=== PATIENT | male | born 1980 | race Caucasian/White ===

== ENCOUNTER 2016-06-25 14:15 | Inpatient (IN) | payer BC, OTHER ==
[2016-06-25] MEDS ORDERED: ACETAMINOPHEN 325 MG TAB PO PRN (15:35)
[2016-06-25] MEDS ORDERED: ONDANSETRON DISINTEGRATING 4 MG TAB PO PRN (15:35)
--- NOTE | 2016-06-25 16:44 | GHP ---
[f rep st] HISTORY AND PHYSICAL DATE OF ADMISSION: 06/25/2016 CHIEF COMPLAINT: Presenting for chemotherapy. HISTORY OF PRESENT ILLNESS: This is a 36-year-old male with a recent diagnosis of AML, presenting fo r his second round of chemotherapy. Last round, patient was admitted on 04/27/2016 and was discharge d on 05/23/2016. The patient reports no recent fevers or chills. No recent vision changes, headache . Has had complete resolution of his symptoms of esophagitis during his last hospital stay, for whic h he received a post-disposition 2-week course of empiric antifungals. Patient reports normal appeti te. No nausea. No vomiting. No abdominal discomfort, dysuria, hematuria, swelling, shortness of br eath, or chest pain. PAST MEDICAL HISTORY: 1. Acute myelogenous leukemia, status post induction chemotherapy. 2. Previous odynophagia with possible candidal esophagitis. SOCIAL HISTORY: Negative for tobacco, alcohol, or illicit drugs. FAMILY HISTORY: Positive for coronary artery disease, lung cancer, and a brother who of complic ations of alcoholism. ADVANCED DIRECTIVES: Patient is full cor, full tube. REVIEW OF SYSTEMS: A 10-point review of systems is negative with the exception of that reported in t he HPI. PHYSICAL EXAMINATION: VITAL SIGNS: Blood pressure 116/81, heart rate 106, respiratory rate 17, 95% on room air, 36.7. GENERAL: This is a healthy-appearing young male, in no acute distress. HEENT: Notable for moist mucous membranes. Eye exam is negative for any icterus. CARDIAC: Patient is regu lar rate and rhythm. No murmurs, gallops, or rubs. PULMONARY: Good respiratory effort. Clear to a uscultation bilaterally. GASTROINTESTINAL: Positive bowel sounds. Abdomen is soft and nontender t o palpation in all 4 quadrants. MUSCULOSKELETAL: Negative for any lower extremity edema. SKIN: Ne gative for any rashes. NEUROLOGIC: Patient is alert and oriented x3. PSYCHIATRIC: He is pleasant and cooperative on interview and examination. DATA: Last white count is 7.5, that was on 05/29/2016 and platelets were 790 at that time. Chest x- ray performed during his previous hospitalization, which I personally reviewed and interpreted, showe d mild hypoventilation and a small right pleural effusion. ASSESSMENT AND PLAN: This is a 36-year-old male, presenting for second round of chemotherapy for acu te myelogenous leukemia. 1. Acute myelogenous leukemia: Chemo protocols have been written by Oncology. Patient will initiat e during this hospital stay. Will discuss empiric treatment of esophagitis with Oncology tomorrow. The patient is taking normal p.o. Will follow hydration protocols per chemotherapy. 2. Suspected candidal esophagitis: Again, will discuss with Oncology whether we should empirically t reat this patient before the salty of his chemotherapy. 3. Prophylaxis with Lovenox. 4. Diet: Regular. DISPOSITION: I expect greater than 2-midnights as patient is presenting for round 2 of AML chemother apy. I have discussed the case with the Onc pharmacist. He will write orders for initiation of chem o. /[id number]/MODL
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
[2016-06-25] MEDS: DEXAMETHASONE 0.1% 5 ML OPHT.BTL EACHEYE SCH ×2 (17:36→20:49)
[2016-06-25] MEDS: DEXAMETHASONE SOD PHOSPHATE IV SCH (20:33)
[2016-06-25] MEDS: NS IV SCH ×2 (20:33→20:57)
[2016-06-25] MEDS: ONDANSETRON HCL IV SCH (20:33)
[2016-06-25] MEDS: ONDANSETRON 4 MG/2 ML VIAL IVP PRN (20:34)
[2016-06-25] MEDS: CYTARABINE IV SCH (20:57)
[2016-06-26] MEDS: DEXAMETHASONE 0.1% 5 ML OPHT.BTL EACHEYE SCH ×5 (05:59→20:34)
[2016-06-26 06:12] LABS: % IMMATURE GRANULYOCYTES 0.6 % (0.0-1.1); ABSOLUTE IMMATURE GRANULOCYTES 0.06 10^3/uL (0.00-0.10); ADD DIFF? NO; ADD MORPH? NO; ADD SCAN? NO; ATYPICAL LYMPHOCYTE FLAG 0 (0-99); FRAGMENT RBC FLAG 0 (0-99); HEMATOCRIT 38.1 % (40.0-51.0); HEMOGLOBIN 12.9 g/dL (13.7-17.5); LEFT SHIFT FLG 10 (0-99); LIPEMIA HEMOLYSIS FLAG 90 (0-99); MEAN CELL HEMOGLOBIN 31.5 pg (27.9-34.1); MEAN CELL HEMOGLOBIN CONCENTR. 33.9 g/dL (32.4-36.7); MEAN CELL VOLUME 93.2 fL (81.5-99.8); MEAN PLATELET VOLUME 9.6 fL (8.7-11.7); PLATELET CLUMPS FLAG 0 (0-99); PLATELET COUNT 210 10^3/uL (150-400); RED BLOOD CELL COUNT 4.09 10^6/uL (4.40-6.38); RED CELL DISTRIBUTION WIDTH 15.3 % (11.5-15.2)
[2016-06-26 06:27] LABS: ALANINE AMINOTRANSFERASE 40 IU/L (21-72); ALBUMIN 3.7 g/dL (3.5-5.0); ALKALINE PHOSPHATASE 92 IU/L (38-126); ANION GAP 11 mEq/L (8-16); ASPARTATE AMINOTRANSFERASE 25 IU/L (17-59); BILIRUBIN,TOTAL 0.4 mg/dL (0.1-1.4); CALCIUM 9.2 mg/dL (8.5-10.4); CARBON DIOXIDE 24 mEq/l (22-31); CHLORIDE 103 mEq/L (97-110); CREATININE 0.7 mg/dL (0.7-1.3); GLOMERULAR FILTRATION RATE > 60; GLUCOSE 150 mg/dL (70-100); SODIUM 138 mEq/L (134-144); TOTAL PROTEIN 6.7 g/dL (6.3-8.2)
--- NOTE | 2016-06-26 06:36 | SOAPPROG ---
SOSORAIDA Progress Note Assessment/Plan: Assessment: 1.) AML in Consolidation # 1- with High dose Cytarabine 3,000 mg/M2 IV Q 12 hours on Days 1, 3, 5 Comment: Day # 1 first dose didn't start until 9 PM. Second dose of " day 1" will be 9 AM today. Day # 3 starts 06/27- Saturday- it is okay to move administration time to 2 PM on 06/27. Toxicity to monitor for : Nausea, diarrhea, early mucositis, cerebellar toxicity, myelosuppression, and skin reaction. Plan: 1.) Second dose of Cytarabine, "Day 1" at 9 AM today. Observe for toxicity. 2.) Day 3 starts 06/27/16. 06/26/16 06:32 Subjective: Tolerated first dose of high dose Sadie-C without toxicity. No new sx. this AM. Objective: VSS, Afebrile, as noted here Pulse is strong, and regular this AM. PICC line site is NT at exit site. No peripheral edema. Labs as noted here: Hgb 12.9, WBC 10.13, PLT 210 Chemistry panel - Glucose 150. BUN/CR 12/0.7 Vital Signs Temp Pulse Resp BP Pulse Ox 36.3 C 75 16 123/66 H 92 06/26/16 05:00 06/26/16 05:00 06/26/16 05:00 06/26/16 05:00 06/26/16 05:00 Laboratory Results 06/26/16 05:55 06/26/16 05:55 06/25/16 06/26/16 06/27/16 05:59 05:59 05:59 Intake Total 1072 Output Total 600 Balance 472 ICD10 Worksheet Patient Problems: Problems Problem Status Diagnosed AML (acute myelogenous leukemia) Acute Pancytopenia due to antineoplastic chemotherapy Acute
[2016-06-26] MEDS: NS IV SCH ×2 (09:33→10:37)
[2016-06-26] MEDS: ONDANSETRON HCL IV SCH (09:33)
[2016-06-26] MEDS: DEXAMETHASONE SOD PHOSPHATE IV SCH (09:33)
[2016-06-26] MEDS: ENOXAPARIN 40 MG/0.4 ML SYR SC SCH (09:34)
[2016-06-26] MEDS: CYTARABINE IV SCH (10:37)
--- NOTE | 2016-06-26 10:56 | HOSPPROG ---
Hospitalist Progress Note Assessment/Plan: 36-year-old with AML who comes in for consolidation therapy following his induction. Is no complaints # AML: Starting consolidation therapy yesterday defer to Dr. Briones patient otherwise without complaints # history of the odynophagia and Lesley esophagitis with his previous induction. Subjective: Patient new to me, chart reviewed currently Brody has no new complaints Objective: Vital Signs Temp Pulse Resp BP Pulse Ox 36.6 C 67 18 103/63 91 L 06/26/16 08:01 06/26/16 08:01 06/26/16 08:01 06/26/16 08:01 06/26/16 08:01 Laboratory Results 06/26/16 05:55 06/26/16 05:55 06/25/16 06/26/16 06/27/16 05:59 05:59 05:59 Intake Total 1072 Output Total 600 Balance 472 - Physical Exam Constitutional: no apparent distress, not in pain Eyes: PERRL, EOMI Ears, Nose, Mouth, Throat: moist mucous membranes Skin: normal color Neurologic: AAOx3 Psychiatric: interacting appropriately ICD10 Worksheet Patient Problems: Problems Problem Status Diagnosed AML (acute myelogenous leukemia) Acute Pancytopenia due to antineoplastic chemotherapy Acute
[2016-06-27] MEDS: DEXAMETHASONE 0.1% 5 ML OPHT.BTL EACHEYE SCH ×4 (05:33→21:46)
[2016-06-27 05:46] LABS: % IMMATURE GRANULYOCYTES 0.6 % (0.0-1.1); ABSOLUTE IMMATURE GRANULOCYTES 0.09 10^3/uL (0.00-0.10); ADD DIFF? NO; ADD MORPH? NO; ADD SCAN? NO; ATYPICAL LYMPHOCYTE FLAG 0 (0-99); FRAGMENT RBC FLAG 0 (0-99); HEMATOCRIT 36.3 % (40.0-51.0); HEMOGLOBIN 12.2 g/dL (13.7-17.5); LEFT SHIFT FLG 0 (0-99); LIPEMIA HEMOLYSIS FLAG 80 (0-99); MEAN CELL HEMOGLOBIN 31.4 pg (27.9-34.1); MEAN CELL HEMOGLOBIN CONCENTR. 33.6 g/dL (32.4-36.7); MEAN CELL VOLUME 93.3 fL (81.5-99.8); MEAN PLATELET VOLUME 9.6 fL (8.7-11.7); PLATELET CLUMPS FLAG 0 (0-99); PLATELET COUNT 199 10^3/uL (150-400); RED BLOOD CELL COUNT 3.89 10^6/uL (4.40-6.38); RED CELL DISTRIBUTION WIDTH 15.6 % (11.5-15.2)
[2016-06-27 06:11] LABS: ANION GAP 11 mEq/L (8-16); CALCIUM 8.8 mg/dL (8.5-10.4); CARBON DIOXIDE 26 mEq/l (22-31); CHLORIDE 103 mEq/L (97-110); CREATININE 0.7 mg/dL (0.7-1.3); GLOMERULAR FILTRATION RATE > 60; GLUCOSE 124 mg/dL (70-100); POTASSIUM 4.4 mEq/L (3.5-5.2); SODIUM 140 mEq/L (134-144)
[2016-06-27] MEDS: ENOXAPARIN 40 MG/0.4 ML SYR SC SCH (09:00)
[2016-06-27] MEDS: ONDANSETRON HCL IV SCH ×2 (11:27→23:27)
[2016-06-27] MEDS: DEXAMETHASONE SOD PHOSPHATE IV SCH ×2 (11:27→23:27)
[2016-06-27] MEDS: NS IV SCH ×3 (11:27→23:27)
[2016-06-27] MEDS: CYTARABINE IV SCH (12:05)
--- NOTE | 2016-06-27 12:37 | SOAPPROG ---
SOSORAIDA Progress Note Assessment/Plan: Assessment: 1.) AML in Consolidation # 1- with High dose Cytarabine 3,000 mg/M2 IV Q 12 hours on Days 1, 3, 5 Comment: Day # 1 first dose didn't start until 9 PM. Second dose of " day 1" will be 9 AM today. Day # 3 starts 06/27- Saturday- it is okay to move administration time to 11 AM on 06/27. Toxicity to monitor for : Nausea, diarrhea, early mucositis, cerebellar toxicity, myelosuppression, and skin reaction. Plan: 1.) Second dose of Cytarabine, "Day 1" at 9 AM today. Observe for toxicity. 2.) Day 3 starts 06/27/16. ALIN-C at 11 AM and 11 PM, each over 3 hours with premeds before each dose. 06/27/16 12:36 Subjective: Stable by sx. without toxicity of Tx. thus far. No new sx. Objective: as noted here, VSS, afebrile HEENT- anicteric, no oral lesions Neck- supple Chest- clear CVS- RSR, no extra HS ABD- soft, NT , BS+, no HSM. EXT- no edema, skin intact. Labs- Hgb 12.2, WBC 15.17 Glu 124 Vital Signs Temp Pulse Resp BP Pulse Ox 36.5 C 108 H 16 113/81 H 95 06/27/16 11:08 06/27/16 11:08 06/27/16 11:08 06/27/16 11:08 06/27/16 11:08 Laboratory Results 06/27/16 05:30 06/27/16 05:30 06/26/16 06/27/16 06/28/16 05:59 05:59 05:59 Intake Total 1072 322 Output Total 600 1800 Balance 472 -0982 ICD10 Worksheet Patient Problems: Problems Problem Status Diagnosed AML (acute myelogenous leukemia) Acute Pancytopenia due to antineoplastic chemotherapy Acute
--- NOTE | 2016-06-27 18:49 | HOSPPROG ---
Hospitalist Progress Note Assessment/Plan: Assessment/Plan: 36-year-old with AML presents for consolidation therapy following his induction # AML: Consolidation, D#3 - defer to Dr. Briones - monitor labs at discretion of heme/onc - no physical complaints today - requiring ongoing IVF # History of the odynophagia and Lesley esophagitis with his previous induction, monitor # Leukocytosis: WBC [facility] to 15K 2/2 dex Diet. Regular Prophylaxis. High risk patient, Lovenox 40 Code. Full Disposition. Anticipated discharge is after consolidation therapy, patient requires ongoing inpatient admission for chemotherapy consolidation. Subjective: Patient denies any complaints Objective: Vital Signs Temp Pulse Resp BP Pulse Ox 36.8 C 104 H 16 128/84 H 93 06/27/16 17:25 06/27/16 17:25 06/27/16 17:25 06/27/16 17:25 06/27/16 17:25 Laboratory Results 06/27/16 05:30 06/27/16 05:30 06/26/16 06/27/16 06/28/16 05:59 05:59 05:59 Intake Total 1148 264 4475 Output Total 600 1800 Balance 472 -1721 3425 - Physical Exam Constitutional: no apparent distress, appears nourished, not in pain, No uncomfortable Ears, Nose, Mouth, Throat: moist mucous membranes, hearing normal, ears appear normal, no oral mucosal ulcers Cardiovascular: regular rate and rhythym, no murmur, rub, or gallop Respiratory: no respiratory distress, no rales or rhonchi, clear to auscultation Gastrointestinal: normoactive bowel sounds, soft, non-tender abdomen, no palpable masses Neurologic: AAOx3, sensation intact bilaterally Psychiatric: interacting appropriately, not anxious, not encephalopathic, thought process linear ICD10 Worksheet Patient Problems: Problems Problem Status Diagnosed AML (acute myelogenous leukemia) Acute Pancytopenia due to antineoplastic chemotherapy Acute
[2016-06-28] MEDS: NS IV SCH (00:03)
[2016-06-28] MEDS: CYTARABINE IV SCH (00:03)
[2016-06-28] MEDS: DEXAMETHASONE 0.1% 5 ML OPHT.BTL EACHEYE SCH ×4 (05:30→20:56)
[2016-06-28 05:52] LABS: % IMMATURE GRANULYOCYTES 0.6 % (0.0-1.1); ABSOLUTE IMMATURE GRANULOCYTES 0.07 10^3/uL (0.00-0.10); ADD DIFF? NO; ADD MORPH? NO; ADD SCAN? NO; ATYPICAL LYMPHOCYTE FLAG 0 (0-99); FRAGMENT RBC FLAG 0 (0-99); HEMATOCRIT 35.1 % (40.0-51.0); HEMOGLOBIN 11.7 g/dL (13.7-17.5); LEFT SHIFT FLG 0 (0-99); LIPEMIA HEMOLYSIS FLAG 80 (0-99); MEAN CELL HEMOGLOBIN CONCENTR. 33.3 g/dL (32.4-36.7); MEAN CELL VOLUME 93.1 fL (81.5-99.8); MEAN PLATELET VOLUME 9.6 fL (8.7-11.7); PLATELET CLUMPS FLAG 0 (0-99); PLATELET COUNT 189 10^3/uL (150-400); RED BLOOD CELL COUNT 3.77 10^6/uL (4.40-6.38); RED CELL DISTRIBUTION WIDTH 15.4 % (11.5-15.2)
[2016-06-28 06:09] LABS: ANION GAP 9 mEq/L (8-16); CALCIUM 8.9 mg/dL (8.5-10.4); CARBON DIOXIDE 25 mEq/l (22-31); CHLORIDE 105 mEq/L (97-110); CREATININE 0.6 mg/dL (0.7-1.3); GLOMERULAR FILTRATION RATE > 60; GLUCOSE 136 mg/dL (70-100); POTASSIUM 4.7 mEq/L (3.5-5.2); SODIUM 139 mEq/L (134-144)
--- NOTE | 2016-06-28 06:42 | SOAPPROG ---
SOSORAIDA Progress Note Assessment/Plan: Assessment: 1.) AML in Consolidation # 1- with High dose Cytarabine 3,000 mg/M2 IV Q 12 hours on Days 1, 3, 5 Comment: Day # 1 first dose didn't start until 9 PM. Second dose of " day 1" will be 9 AM today. Day # 3 starts 06/27- Saturday- it is okay to move administration time to 11 AM on 06/27. Toxicity to monitor for : Nausea, diarrhea, early mucositis, cerebellar toxicity, myelosuppression, and skin reaction. Plan: 1.) Pt finished Day 3 Cytarabine at 2 AM today. 2.) Next and last day of chemotherapy is scheduled for 06/29/16, with Cytarabine over 3 hours each, Q 12 hours. First dose for AM. 3.) If patient well, anticipate discharge on 06/30/16. Pt aware of Tx schedule and discharge plans, with outpt. follow up scheduled to start next week. 06/28/16 06:41 Subjective: Stable over past 24 hours, without complaint of Tx toxicity associated with high dose Cytarabine. Objective: As noted here, VSS, afebrile Pulse is SB associated with restful sleep. Labs show Hgb 11.7, PLT remains normal at 189 and WBC at 11.63 Chemistry panel no new issues: Vital Signs Temp Pulse Resp BP Pulse Ox 36.4 C 57 L 16 118/62 94 06/28/16 03:13 06/27/16 23:59 06/28/16 03:13 06/28/16 03:13 06/28/16 03:13 Laboratory Results 06/28/16 05:35 06/28/16 05:35 06/27/16 06/28/16 06/29/16 05:59 05:59 05:59 Intake Total 677 8002 Output Total 1422 Balance -6995 9623 ICD10 Worksheet Patient Problems: Problems Problem Status Diagnosed AML (acute myelogenous leukemia) Acute Pancytopenia due to antineoplastic chemotherapy Acute
[2016-06-28] MEDS: ENOXAPARIN 40 MG/0.4 ML SYR SC SCH (11:47)
--- NOTE | 2016-06-28 15:46 | HOSPPROG ---
Hospitalist Progress Note Assessment/Plan: Assessment/Plan: 36-year-old with AML presents for consolidation therapy following his induction # AML: Consolidation, D#4 - defer to Dr. Briones - monitor labs at discretion of heme/onc - no physical complaints today - requiring ongoing IVF # History of the odynophagia and Lesley esophagitis with his previous induction, monitor # Leukocytosis: WBC stable at 11,600, 2/2 dex Diet. Regular Prophylaxis. High risk patient, Lovenox 40 Code. Full Disposition. Anticipated discharge is after consolidation therapy, patient requires ongoing inpatient admission for chemotherapy consolidation. Subjective: Patient reports he is feeling well, moving his bowels, urinating regularly Objective: Vital Signs Temp Pulse Resp BP Pulse Ox 36.6 C 91 16 120/74 95 06/28/16 11:41 06/28/16 11:41 06/28/16 11:41 06/28/16 11:41 06/28/16 11:41 Laboratory Results 06/28/16 05:35 06/28/16 05:35 06/27/16 06/28/16 06/29/16 05:59 05:59 05:59 Intake Total 322 4797 Output Total 1800 Balance -1478 4797 - Physical Exam Constitutional: no apparent distress, appears nourished, not in pain Cardiovascular: regular rate and rhythym, no murmur, rub, or gallop, No edema Respiratory: no respiratory distress, no rales or rhonchi, clear to auscultation Gastrointestinal: normoactive bowel sounds, soft, non-tender abdomen, no palpable masses Neurologic: AAOx3, sensation intact bilaterally Psychiatric: interacting appropriately, not anxious, not encephalopathic, thought process linear ICD10 Worksheet Patient Problems: Problems Problem Status Diagnosed AML (acute myelogenous leukemia) Acute Pancytopenia due to antineoplastic chemotherapy Acute
[2016-06-28 21:47] VITALS: RESP 16
[2016-06-29] MEDS: DEXAMETHASONE 0.1% 5 ML OPHT.BTL EACHEYE SCH ×4 (05:26→20:58)
[2016-06-29 05:37] LABS: % IMMATURE GRANULYOCYTES 0.6 % (0.0-1.1); ABSOLUTE IMMATURE GRANULOCYTES 0.05 10^3/uL (0.00-0.10); ADD DIFF? NO; ADD MORPH? NO; ADD SCAN? NO; ATYPICAL LYMPHOCYTE FLAG 0 (0-99); FRAGMENT RBC FLAG 0 (0-99); HEMATOCRIT 33.5 % (40.0-51.0); LEFT SHIFT FLG 0 (0-99); LIPEMIA HEMOLYSIS FLAG 80 (0-99); MEAN CELL HEMOGLOBIN 31.3 pg (27.9-34.1); MEAN CELL HEMOGLOBIN CONCENTR. 32.8 g/dL (32.4-36.7); MEAN CELL VOLUME 95.2 fL (81.5-99.8); MEAN PLATELET VOLUME 9.6 fL (8.7-11.7); PLATELET CLUMPS FLAG 10 (0-99); PLATELET COUNT 167 10^3/uL (150-400); RED BLOOD CELL COUNT 3.52 10^6/uL (4.40-6.38); RED CELL DISTRIBUTION WIDTH 15.5 % (11.5-15.2)
[2016-06-29 05:49] LABS: ANION GAP 8 mEq/L (8-16); CALCIUM 8.3 mg/dL (8.5-10.4); CARBON DIOXIDE 26 mEq/l (22-31); CHLORIDE 105 mEq/L (97-110); CREATININE 0.6 mg/dL (0.7-1.3); GLOMERULAR FILTRATION RATE > 60; GLUCOSE 98 mg/dL (70-100); POTASSIUM 4.5 mEq/L (3.5-5.2); SODIUM 139 mEq/L (134-144)
--- NOTE | 2016-06-29 07:39 | SOAPPROG ---
SOAP Progress Note Assessment/Plan: Assessment: 1.) AML in Consolidation # 1- with High dose Cytarabine 3,000 mg/M2 IV Q 12 hours on Days 1, 3, 5 Comment: Day # 5 today- 06/29. First dose at 10 AM over 3 hours. Second dose @ 10 PM over 3 hours. To finish after MN tonight. Toxicity to monitor for : Nausea, diarrhea, early mucositis, cerebellar toxicity, myelosuppression, and skin reaction. Plan: 1.) Administer Day 5 both doses today. 2.) If patient well, anticipate discharge on 06/30/16. Pt aware of Tx schedule and discharge plans, with outpt. follow up scheduled to start next week. 3.) Will RX for compazine generic and lorazepam for anti-emetics today. May get filled at [facility]'s vs. his home pharmacy tomorrow. 06/29/16 07:33 Subjective: Doing well, and without new sx. or Cytarabine toxicity. Objective: VSS, Afebrile as noted here HEENT- anicteric, no oral lesions Neck - supple Chest- clear, CVS- RSR, no extra HS ABD- soft, NT, no mass or HSM EXT- no edema, skin intact Labs as noted here: Hgb 11.0 PLT 167, WBC 7.71 BMP WNL Vital Signs Temp Pulse Resp BP Pulse Ox 36.6 C 72 16 99/68 L 95 06/29/16 05:55 06/29/16 05:55 06/29/16 05:55 06/29/16 05:55 06/29/16 05:55 Laboratory Results 06/29/16 05:30 06/29/16 05:30 06/28/16 06/29/16 06/30/16 05:59 05:59 05:59 Intake Total 4797 1400 Balance 4797 1400 ICD10 Worksheet Patient Problems: Problems Problem Status Diagnosed AML (acute myelogenous leukemia) Acute Pancytopenia due to antineoplastic chemotherapy Acute
[2016-06-29] MEDS: ENOXAPARIN 40 MG/0.4 ML SYR SC SCH (09:22)
[2016-06-29] MEDS: NS IV SCH ×4 (09:59→21:24)
[2016-06-29] MEDS: ONDANSETRON HCL IV SCH ×2 (09:59→20:59)
[2016-06-29] MEDS: DEXAMETHASONE SOD PHOSPHATE IV SCH ×2 (09:59→20:59)
[2016-06-29] MEDS: CYTARABINE IV SCH ×2 (10:42→21:24)
--- NOTE | 2016-06-29 14:47 | HOSPPROG ---
Hospitalist Progress Note Assessment/Plan: Assessment/Plan: 36-year-old with AML presents for consolidation therapy following his induction # AML: Consolidation, D#5 - defer to Dr. Briones - no physical complaints today - requiring ongoing IVF - if no complications, discharge tomorrow (06/30/16) w/ labs on 07/03/16 (Rx in chart) # History of the odynophagia and Lesley esophagitis with his previous induction, monitor # Leukocytosis: WBC stable at 7,700 Diet. Regular Prophylaxis. High risk patient, Lovenox 40 Code. Full Disposition. Anticipated discharge is after consolidation therapy (06/30/16), patient requires ongoing inpatient admission for chemotherapy consolidation. Subjective: Patient is feeling well, not expressing any oral discomfort or shortness of breath, moving bowels Objective: Vital Signs Temp Pulse Resp BP Pulse Ox 36.8 C 79 16 115/64 96 06/29/16 12:51 06/29/16 12:51 06/29/16 12:51 06/29/16 12:51 06/29/16 12:51 Laboratory Results 06/29/16 05:30 06/29/16 05:30 06/28/16 06/29/16 06/30/16 05:59 05:59 05:59 Intake Total 4797 1400 Balance 4797 1400 - Pending Discharge Pending Discharge Within 24 Hours: Yes Pending Discharge Date: 06/30/16 Pending Discharge Time: 11:00 - Physical Exam Constitutional: no apparent distress, appears nourished, not in pain Ears, Nose, Mouth, Throat: moist mucous membranes, hearing normal, ears appear normal, no oral mucosal ulcers Cardiovascular: regular rate and rhythym, no murmur, rub, or gallop Respiratory: no respiratory distress, no rales or rhonchi, No expiratory wheeze , No inspiratory crackles, No bronchial breath sounds Gastrointestinal: normoactive bowel sounds, soft, non-tender abdomen, no palpable masses Neurologic: AAOx3, No facial droop Psychiatric: interacting appropriately, not anxious, not encephalopathic, thought process linear ICD10 Worksheet Patient Problems: Problems Problem Status Diagnosed AML (acute myelogenous leukemia) Acute Pancytopenia due to antineoplastic chemotherapy Acute
[2016-06-29] MEDS: ONDANSETRON 4 MG/2 ML VIAL IVP PRN (20:59)
[2016-06-30] MEDS: DEXAMETHASONE 0.1% 5 ML OPHT.BTL EACHEYE SCH ×2 (06:18→13:09)
[2016-06-30] MEDS: ENOXAPARIN 40 MG/0.4 ML SYR SC SCH (08:40)
--- NOTE | 2016-06-30 09:22 | SOAPPROG ---
SOAP Progress Note Assessment/Plan: Assessment: 1. AML, t(9;11), in first remission 2. s/p cycle 1 hi dose cytarabine consolidation Plan: - d/c to home - f/u in clinic on Saturday with labs prior 06/30/16 09:21 Subjective: feels well. no nausea. no tremor or ataxia. Objective: exam: NAD Lungs CTAB CV RRR no MGR Abd: +BS NT ND Ext: no edema Neuro: a+ox3. no tremor or ataxia Vital Signs Temp Pulse Resp BP Pulse Ox 36.8 C 54 L 16 110/58 L 97 06/30/16 08:11 06/30/16 08:11 06/30/16 08:11 06/30/16 08:11 06/30/16 08:11 Laboratory Results 06/29/16 05:30 06/29/16 05:30 06/29/16 06/30/16 07/01/16 05:59 05:59 05:59 Intake Total 1400 4169 Balance 1400 4169 ICD10 Worksheet Patient Problems: Problems Problem Status Diagnosed AML (acute myelogenous leukemia) Acute Pancytopenia due to antineoplastic chemotherapy Acute
[2016-06-30 13:44] VITALS: BP 102/67; PULSE 56; TEMP 98.3; O2SAT 98
--- NOTE | 2016-06-30 14:12 | GDS ---
[f rep st] DISCHARGE SUMMARY NEW AND ACUTE DIAGNOSES ON THIS ADMISSION: 1. Acute myeloid leukemia. 2. Lesley esophagitis. CONSULTATION: Oncology. PROCEDURE: Consolidation therapy with cytarabine. HISTORY OF PRESENT ILLNESS: A 36-year-old male with a recent diagnosis of acute myeloid leukemia who was admitted for consolidation therapy. This is his 1st consolidation therapy after entering on license of [facility] after standard induction therapy. HOSPITAL COURSE: The patient was admitted and received consolidation therapy with cytarabine at 3 g/ m2 q.12 hours on days 1, 3, and 5. He tolerated the procedures well. The patient had a prior histor y of odynophagia and Lesley esophagitis but showed no evidence of these during this hospitalization. He had had leukocytosis, which was stable, and a discharge white cell count of 7700. DISCHARGE MEDICATIONS: Zofran 4 mg, #10, one p.o. q.4 hours p.r.n. nausea. PLAN: The patient will follow up with [facility] within 3-5 days. This discharge required 40 minutes, greater than 50% to academic counselor and coordinate care. /[id number]/MODL
== END 2016-06-30 14:25 | disposition home or self-care (01) | DRG 838 ==
LOC: F1N 14:15
PROVIDERS: ADMIT Internal Medicine Hematology & Oncology; ATTEND Hospitalist
DX: Z51.11 Encounter for antineoplastic chemotherapy (principal); B37.81 Candidal esophagitis; C92.00 Acute myeloblastic leukemia, not having achieved remission
CPT/HCPCS: J1650; J2405; J9100

== ENCOUNTER → 2016-07-09 | Outpatient (CLI) | payer BC, OTHER ==
[~2016-07-09] MED LIST: ACETAMINOPHEN 325 MG TAB ONE; ACETAMINOPHEN 325 MG TAB PO ONE; diphenhydrAMINE 25 MG CAP PO ONE
[2016-07-09 14:00] LABS: HEMATOCRIT 27.9 % (40.0-51.0); HEMOGLOBIN 9.6 g/dL (13.7-17.5); LIPEMIA HEMOLYSIS FLAG 90 (0-99); MEAN CELL HEMOGLOBIN 30.9 pg (27.9-34.1); MEAN CELL HEMOGLOBIN CONC. 34.4 g/dL (32.4-36.7); MEAN CELL VOLUME 89.7 fL (81.5-99.8); PLATELET CLUMPS FLAG 0 (0-99); PLATELET COUNT 3 10^3/uL (150-400); RED BLOOD CELL COUNT 3.11 10^6/uL (4.40-6.38); RED CELL DISTRIBUTION WIDTH 13.2 % (11.5-15.2)
[2016-07-09 16:23] LABS: ALANINE AMINOTRANSFERASE 57 IU/L (21-72); ALBUMIN 3.3 g/dL (3.5-5.0); ALKALINE PHOSPHATASE 104 IU/L (38-126); ANION GAP 10 mEq/L (8-16); ASPARTATE AMINOTRANSFERASE 25 IU/L (17-59); BILIRUBIN,TOTAL 0.5 mg/dL (0.1-1.4); CALCIUM 8.7 mg/dL (8.5-10.4); CARBON DIOXIDE 26 mEq/l (22-31); CHLORIDE 103 mEq/L (97-110); CREATININE 0.7 mg/dL (0.7-1.3); GLOMERULAR FILTRATION RATE > 60; GLUCOSE 98 mg/dL (70-100); POTASSIUM 4.1 mEq/L (3.5-5.2); SODIUM 139 mEq/L (134-144); TOTAL PROTEIN 6.3 g/dL (6.3-8.2)
[2016-07-09 19:31] VITALS: BP 113/60; PULSE 109; RESP 16; TEMP 97.9; O2SAT 94
== END ==
LOC: RMCCLAB 08:48 → EDSTATUS 18:18 → FOBOP 18:20
PROVIDERS: ATTEND Internal Medicine Hematology & Oncology
PROC: 30233R1 Transfusion of Nonautologous Platelets into Peripheral Vein, Percutaneous Approach (ICD-10-PCS; principal; 2016-07-09)
DX: C92.00 Acute myeloblastic leukemia, not having achieved remission (principal)
CPT/HCPCS: 36430; P9037

== ENCOUNTER 2016-07-10 19:55 | Inpatient (IN) | payer BC ==
[2016-07-10] MEDS ORDERED: NS 1,000 ML IV ONE ×2 (20:10→20:19)
[2016-07-10] MEDS ORDERED: CEFEPIME HCL 2 GM in D5W 100 ML IV ONE (20:14)
[2016-07-10] MEDS ORDERED: ONDANSETRON 4 MG/2 ML VIAL IVP ONE (20:19)
--- NOTE | 2016-07-10 20:29 | EDPHY ---
H & P Stated Complaint: Fever, Chemo, Platelet transplant yesterday Time Seen by Provider: 07/10/16 20:14 HPI/ROS: CHIEF COMPLAINT: Fever, body aches HISTORY OF PRESENT ILLNESS: awoke this morning with generalized body aches, fever, chills, headache, myalgia. He has no neck pain or stiffness. No cough or congestion. Some sore throat and runny nose with coryza. No abdominal pain. No urinary complaints. No open sores or lesions. 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 Went to the [facility], with a triaged him, including laboratory studies blood cultures. They discharged her home with Zofran and Levaquin. He started taking this at 4:00 p.m.. However he was feeling worse, and neutrophils came back at 0, thus he was instructed to come here for admission and antibiotics. did provide reports he was in route. He has has no chest pain or shortness of breath. No cough or congestion at this time. No other associated complaints or modifying factors. He arrives with a PICC line in the right upper extremity. REVIEW OF SYSTEMS: Ten systems reviewed and are negative unless otherwise noted in the HPI EXAMINATION General Appearance: Alert, no distress Head: normocephalic, atraumatic Eyes: Pupils equal and round, no conjunctival pallor or injection ENT, Mouth: Mucous membranes moist . Mild petechiae in the posterior pharynx reportedly chronic. No edema. Uvula midline. No abscess noted. No Neto's. Neck: Normal inspection, supple, non-tender . Painless range of motion all planes. No meningismus Respiratory: Lungs are clear to auscultation. No wheezing, rhonchi or consolidation Cardiovascular: tachycardic with regular rhythm. No murmur. Gastrointestinal: Abdomen is soft and nontender . No tympany, rigidity or guarding. Back: non-tender, no bony abnormalities Neurological: A&O, nonfocal, Strength is symmetric 5/5. Sensory symmetric. Skin: Warm and dry, no rash Extremities: Nontender, no pedal edema Psychiatric: Mood and affect normal DIFFERENTIAL DIAGNOSES: Including but not limited to Sepsis, neutropenic fever, pneumonia, UTI, influenza, strep pharyngitis MDM: neutropenic fever in a patient with acute myeloid leukemia. The patient was immediately examined, with sepsis workup commenced. Blood cultures and lactic acid were immediately obtained. IV fluid, cefepime at the recommendation of Dr. Gillette, and admission have RT commands. He remains mildly tachycardic but hemodynamically stable. No hypertension. Chest x-ray and urine are pending at this time. I discussed case with the hospitalist Dr. Kaur, he will admit the patient for inpatient care. He is admitted in stable condition with antibiotics being administered SUPERVISION: Patient was evaluated in conjunction with the supervising physician. Please see their note for details. Source: Patient, Other Exam Limitations: No limitations - Personal History Current Tetanus Diphtheria and Acellular Pertussis (TDAP): Yes Tetanus Vaccine Date: 2015 - Medical/Surgical History Hx Asthma: No Hx Chronic Respiratory Disease: No Hx Diabetes: No Hx Cardiac Disease: No Hx Renal Disease: No Hx Cirrhosis: No Hx Alcoholism: No Hx HIV/AIDS: No Hx Splenectomy or Spleen Trauma: No Other PMH: tonsil and adnoid 2008. 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 AML - Social History Smoking Status: Former smoker Constitutional: Initial Vital Signs Temperature (C) 102.9 F H 07/10/16 20:02 Heart Rate 102 H 07/10/16 20:02 Respiratory Rate 22 H 07/10/16 20:02 Blood Pressure 110/71 07/10/16 20:02 Allergies/Adverse Reactions: meropenem Allergy (Intermediate, Verified 07/10/16 20:36) Hives Home Medications: Medication Instructions Recorded Acetaminophen [Tylenol ES 500 mg 1,000 mg PO Q6 PRN 07/10/16 (*)] Fluconazole [Diflucan (*)] 100 mg PO DAILY 07/10/16 levOFLOXACIN [levAQUIN (*)] 500 mg PO DAILY 07/10/16 Medical Decision Making - Data Points Laboratory Results: Laboratory Results 07/10/16 20:25 07/10/16 20:25 07/10/16 07/10/16 07/10/16 20:30 20:25 20:20 WBC 0.13 L* 10^3/uL (3.80-9.50) RBC 2.86 L 10^6/uL (4.40-6.38) Hgb 9.0 L g/dL (13.7-17.5) Hct 25.4 L % (40.0-51.0) MCV 88.8 fL (81.5-99.8) MCH 31.5 pg (27.9-34.1) MCHC 35.4 g/dL (32.4-36.7) RDW 12.9 % (11.5-15.2) Plt Count 27 L* 10^3/uL (150-400) MPV 9.0 fL (8.7-11.7) Neut % (Auto) Not Reported Lymph % (Auto) Not Reported Boone % (Auto) Not Reported Eos % (Auto) Not Reported Baso % (Auto) Not Reported Nucleat RBC Rel Count 0.0 % (0.0-0.2) Absolute Neuts (auto) Not Reported Absolute Lymphs (auto) Not Reported Absolute Monos (auto) Not Reported Absolute Eos (auto) Not Reported Absolute Basos (auto) Not Reported Absolute Nucleated RBC 0.00 10^3/uL (0-0.01) Immature Gran % Not Reported Seg Neutrophils % % Lymphocytes % 96 % Eosinophils % 4 % Immature Gran # Not Reported Absolute Lymphocytes 0.12 L 10^3/uL (1.00-3.00) Absolute Eosinophils 0.01 L 10^3/uL (0.03-0.40) Platelet Estimate DECREASED L (ADEQ) Hypochromasia 1+ H Smear Review By Pending PT 13.1 SEC (12.0-15.0) INR 1.00 (0.83-1.16) APTT 26.5 SEC (23.0-38.0) VBG Lactic Acid 2.1 mmol/L (0.7-2.1) Sodium 135 mEq/L (134-144) Potassium 3.8 mEq/L (3.5-5.2) Chloride 102 mEq/L (97-110) Carbon Dioxide 22 mEq/l (22-31) Anion Gap 11 mEq/L (8-16) BUN 14 mg/dL (7-23) Creatinine 0.7 mg/dL (0.7-1.3) Estimated GFR > 60 Glucose 116 H mg/dL (70-100) Calcium 8.9 mg/dL (8.5-10.4) Total Bilirubin 0.8 D mg/dL (0.1-1.4) Conjugated Bilirubin 0.7 H mg/dL (0.0-0.5) Unconjugated Bilirubin 0.1 mg/dL (0.0-1.1) AST 36 IU/L (17-59) ALT 60 IU/L (21-72) Alkaline Phosphatase 105 IU/L (38-126) Total Protein 6.6 g/dL (6.3-8.2) Albumin 3.6 g/dL (3.5-5.0) Influenza Typ A,B (DFA) NEGATIVE FOR FLU (NEGATIVE) Group A Strep Screen NEGATIVE (NEGATIVE) Medications Given: Discontinued Medications Acetaminophen (Tylenol) 1,000 mg PO ONCE ONE Stop: 07/10/16 20:58 Last Admin: 07/10/16 20:58 Dose: 1,000 mg Sodium Chloride (Ns) 1,000 mls @ 0 mls/hr IV ONCE ONE PRN Reason: Wide Open Stop: 07/10/16 20:11 Last Admin: 07/10/16 20:50 Dose: 1,000 mls Cefepime HCl 2 gm/ Dextrose 100 mls @ 200 mls/hr IV EDNOW ONE PRN Reason: Protocol Stop: 07/10/16 20:43 Last Admin: 07/10/16 21:14 Dose: 100 mls Sodium Chloride (Ns) 1,000 mls @ 0 mls/hr IV ONCE ONE PRN Reason: Wide Open Stop: 07/10/16 20:20 Last Admin: 07/10/16 20:50 Dose: 1,000 mls Morphine Sulfate (Morphine) 6 mg IVP Q1HR ONE Stop: 07/10/16 20:20 Last Admin: 07/10/16 20:50 Dose: 6 mg Ondansetron HCl (Zofran) 4 mg IVP EDNOW ONE Stop: 07/10/16 20:20 Last Admin: 07/10/16 20:50 Dose: 4 mg Departure - Departure Disposition: [facility] Acute Clinical Impression: Neutropenic fever, Flu-like symptoms AML (acute myelogenous leukemia) Qualifiers: Leukemia Active/Remission status: relapsed Qualifier Code: (C92.02) Acute myeloblastic leukemia, in relapse Condition: Good
[2016-07-10 20:47] LABS: ADD DIFF? YES; ADD MORPH? NO; ATYPICAL LYMPHOCYTE FLAG 20 (0-99); FRAGMENT RBC FLAG 0 (0-99); HEMATOCRIT 25.4 % (40.0-51.0); LIPEMIA HEMOLYSIS FLAG 90 (0-99); MEAN CELL HEMOGLOBIN 31.5 pg (27.9-34.1); MEAN CELL HEMOGLOBIN CONCENTR. 35.4 g/dL (32.4-36.7); MEAN CELL VOLUME 88.8 fL (81.5-99.8); PLATELET CLUMPS FLAG 10 (0-99); RED BLOOD CELL COUNT 2.86 10^6/uL (4.40-6.38); RED CELL DISTRIBUTION WIDTH 12.9 % (11.5-15.2)
[2016-07-10] MEDS ORDERED: ACETAMINOPHEN 500 MG TAB ONE (20:53)
[2016-07-10 20:54] LABS: ADD SCAN? NO; PROTIME(PATIENT) 13.1 SEC (12.0-15.0)
--- NOTE | 2016-07-10 20:54 | DX ---
PA and Lateral Chest Indication: Cough. Acute leukemia. Comparison: May 16, 2016 Findings: The lungs are well aerated and clear. No pneumothorax, airspace consolidation or effusion h as developed. The heart size is normal. The right PICC is unchanged good position. Impression: Clear lungs. No pneumonia.
[2016-07-10 20:55] LABS: APTT 26.5 SEC (23.0-38.0)
[2016-07-10 20:56] LABS: PLATELET COUNT 27 10^3/uL (150-400)
[2016-07-10] MEDS ORDERED: ACETAMINOPHEN 500 MG TAB PO ONE (20:57)
[2016-07-10 21:00] LABS: ALANINE AMINOTRANSFERASE 60 IU/L (21-72); ALBUMIN 3.6 g/dL (3.5-5.0); ALKALINE PHOSPHATASE 105 IU/L (38-126); ANION GAP 11 mEq/L (8-16); ASPARTATE AMINOTRANSFERASE 36 IU/L (17-59); BILIRUBIN,TOTAL 0.8 mg/dL (0.1-1.4); BILIRUBIN-CONJUGATED 0.7 mg/dL (0.0-0.5); BILIRUBIN-UNCONJUGATED 0.1 mg/dL (0.0-1.1); CALCIUM 8.9 mg/dL (8.5-10.4); CARBON DIOXIDE 22 mEq/l (22-31); CHLORIDE 102 mEq/L (97-110); CREATININE 0.7 mg/dL (0.7-1.3); GLOMERULAR FILTRATION RATE > 60; GLUCOSE 116 mg/dL (70-100); POTASSIUM 3.8 mEq/L (3.5-5.2); SODIUM 135 mEq/L (134-144); TOTAL PROTEIN 6.6 g/dL (6.3-8.2)
[2016-07-10 22:16] LABS: PLATELET ESTIMATE DECREASED (ADEQ)
[2016-07-10 22:19] LABS: HYPOCHROMIA 1+
[2016-07-10] MEDS ORDERED: ONDANSETRON 4 MG/2 ML VIAL IVP PRN (23:13)
[2016-07-10] MEDS ORDERED: TEMAZEPAM 15 MG CAP PO PRN (23:13)
--- NOTE | 2016-07-10 23:40 | GHP ---
[f rep st] HISTORY AND PHYSICAL DATE OF ADMISSION: 07/10/2016 CHIEF COMPLAINT: Fever. HISTORY OF PRESENT ILLNESS: This is a 36-year-old male who was diagnosed with AML in April. He underwent induction chemotherapy at that time, and had neutropenic fever, and also had po ssible Lesley esophagitis. He returned in early June for consolidation chemotherapy. He did wel l with that, and was discharged a week ago. This morning, he developed fever, and then went to [facility], who did blood counts and sent him home with Levaquin and fluconazole. When he got home, he spiked a fever to 103, and came to the hospital. He has a mild sore throat. Otherwise, he has no localizing symptoms. He denies any diarrhea, cough, dysuria. His PICC line site looks okay. He does not have any problems with odynophagia, as he did before. REVIEW OF SYSTEMS: Ten-point review of systems was obtained and was negative. PAST MEDICAL HISTORY: 1. AML, as above. 2. Possible Lesley esophagitis. 3. History of drug rash during induction chemotherapy, although it was unsure what antibiotics could have been the cause. MEDICATIONS: None prior to today. 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 Works in IT. FAMILY HISTORY: No family history of coronary artery disease, lung cancer, throat cancer. PHYSICAL EXAM: VITAL SIGNS: Temperature is 39.4, blood pressure 104/58, heart rate is 119, oxygen s aturation 93% on room air. GENERAL APPEARANCE: The patient is well developed, no apparent distress. HEENT: Nonicteric sclerae. Extraocular movements intact. Moist mucous membranes. No thrush. No significant pharyngeal erythema. NECK: Supple. No thyromegaly. No lymphadenopathy. LUNGS: Good effort. Clear to auscultation bilaterally. CARDIOVASCULAR: Regular rate and rhythm. No murmurs, gallops. ABDOMEN: Positive bowel sounds. Soft, nontender, nondistended. No hepatosplenomegaly. E XTREMITIES: No clubbing, cyanosis, or edema. SKIN: Without rash. NEUROLOGIC: Intact. Alert and oriented x3. Moving all 4 extremities equally. PSYCHIATRIC: Normal mood and affect. LABS: White blood cell count is 0.13, hemoglobin 9, and platelets are 27. Lactate is 2.1. Chemistr y is normal. LFTs are also essentially normal. Chest x-ray is negative. ASSESSMENT: This is a 36-year-old male with a history of acute myelogenous leukemia, presenting with neutropenic fever. PLAN: 1. Neutropenic fever. Patient had a previous hospitalization in April. The patient was started on meropenem when he developed neutropenic fever. At that time, he also had concern for Lesley esop hagitis, and was started on micafungin. It is thought that maybe the meropenem was the cause of the fever. At this point, we will treat with cefepime, and continue fluconazole orally for prophylaxis d osing. We are going to hold off on vancomycin until cultures are back. We will probably get Infecti ous Disease to see him in the morning as well. 2. AML, status post induction and first consolidation of chemotherapy. 3. Thrombocytopenia. Patient did get a platelet transfusion yesterday. 4. Disposition. Patient will be admitted under full admission status. The case was discussed with the ER physician. Old records are reviewed and summarized in the HPI. /[id number]/MODL
[2016-07-10] MEDS: oxyCODONE IR 5 MG TAB PO PRN (23:53)
[2016-07-11] MEDS: ACETAMINOPHEN 500 MG TAB PO PRN ×3 (01:18→20:34)
[2016-07-11] MEDS: CEFEPIME HCL 2 GM in D5W 100 ML IV SCH ×3 (05:54→20:35)
[2016-07-11] MEDS: NS 1,000 ML IV SCH ×2 (05:54→13:10)
[2016-07-11 06:10] LABS: ADD MORPH? NO; ATYPICAL LYMPHOCYTE FLAG 60 (0-99); FRAGMENT RBC FLAG 0 (0-99); HEMATOCRIT 27.1 % (40.0-51.0); HEMOGLOBIN 9.1 g/dL (13.7-17.5); LEFT SHIFT FLG 0 (0-99); LIPEMIA HEMOLYSIS FLAG 80 (0-99); MEAN CELL HEMOGLOBIN 31.4 pg (27.9-34.1); MEAN CELL HEMOGLOBIN CONCENTR. 33.6 g/dL (32.4-36.7); MEAN CELL VOLUME 93.4 fL (81.5-99.8); MEAN PLATELET VOLUME 9.4 fL (8.7-11.7); PLATELET CLUMPS FLAG 20 (0-99); RED CELL DISTRIBUTION WIDTH 13.1 % (11.5-15.2)
[2016-07-11 06:22] LABS: PLATELET COUNT 25 10^3/uL (150-400)
[2016-07-11 06:33] LABS: ANION GAP 12 mEq/L (8-16); CALCIUM 8.6 mg/dL (8.5-10.4); CARBON DIOXIDE 23 mEq/l (22-31); CHLORIDE 105 mEq/L (97-110); CREATININE 0.8 mg/dL (0.7-1.3); GLOMERULAR FILTRATION RATE > 60; GLUCOSE 116 mg/dL (70-100); POTASSIUM 4.8 mEq/L (3.5-5.2); SODIUM 140 mEq/L (134-144)
[2016-07-11 06:42] LABS: ADD SCAN? NO
[2016-07-11 06:43] LABS: ADD DIFF? NO
[2016-07-11 07:31] LABS: PLATELET ESTIMATE DECREASED (ADEQ)
[2016-07-11] MEDS: FLUCONAZOLE 100 MG TAB PO SCH (09:46)
[2016-07-11] MEDS: HYDROCODONE/APAP 5/325 TAB PO PRN (09:49)
[2016-07-11] MEDS ORDERED: NS 1,000 ML IV ONE (14:49)
[2016-07-11 15:45] LABS: COLOR YELLOW; LEUKOCYTE ESTERASE,URINE NEGATIVE (NEGATIVE); NITRITE,URINE NEGATIVE (NEGATIVE)
[2016-07-11 15:56] LABS: WBC,URINE NONE SEEN /hpf (0-3)
--- NOTE | 2016-07-11 17:45 | HOSPPROG ---
Hospitalist Progress Note Assessment/Plan: DIAGNOSIS: NEUTROPENIC FEVER E COLI BACTEREMIA OF UNCERTAIN SOURCE PANCYTOPENIA DUE TO LEUKEMIA AND CHEMOTHERAPY AML PLANS: - continue current IV antibiotics -IV fluid resuscitation, I have ordered an extra in L of normal salinebolus now he may need more -infectious disease consult, I have placed order and made a call -follow counts closely, transfusions as indicated SUBJECTIVE: Feels quite ill with chills and sweats but no focal pain, shortness of breath, nausea OBJECTIVE Vitals reviewed: Still with fever, with some tachycardia and intermittently some lower blood pressures Exam: alert oriented Looks tired and weak skin warm diaphoretic color ok resps not labored lungs clear BSs heart regular abd soft nondistended nontender, bowel sounds present limbs warm, no edema iv site ok Objective: Vital Signs Temp Pulse Resp BP Pulse Ox 38.2 C 116 H 18 99/59 L 100 07/11/16 16:22 07/11/16 16:22 07/11/16 16:22 07/11/16 16:22 07/11/16 16:22 Laboratory Results 07/11/16 05:55 07/11/16 05:55 07/10/16 07/11/16 07/12/16 06:59 06:59 06:59 Intake Total 1150 Balance 1150 PT 13.1 SEC (12.0-15.0) 07/10/16 20:25 INR 1.00 (0.83-1.16) 07/10/16 20:25 ICD10 Worksheet Patient Problems: Problems Problem Status Diagnosed AML (acute myelogenous leukemia) Acute Flu-like symptoms Acute Neutropenic fever Acute Pancytopenia due to antineoplastic chemotherapy Acute
[2016-07-11] MEDS: oxyCODONE IR 5 MG TAB PO PRN (20:34)
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
[2016-07-12] MEDS: ACETAMINOPHEN 500 MG TAB PO PRN ×3 (05:05→20:12)
[2016-07-12] MEDS: CEFEPIME HCL 2 GM in D5W 100 ML IV SCH ×3 (05:05→23:03)
[2016-07-12 05:08] LABS: ADD MORPH? NO; FRAGMENT RBC FLAG 0 (0-99); HEMATOCRIT 21.5 % (40.0-51.0); HEMOGLOBIN 7.6 g/dL (13.7-17.5); LIPEMIA HEMOLYSIS FLAG 90 (0-99); MEAN CELL HEMOGLOBIN 31.9 pg (27.9-34.1); MEAN CELL HEMOGLOBIN CONCENTR. 35.3 g/dL (32.4-36.7); MEAN CELL VOLUME 90.3 fL (81.5-99.8); MEAN PLATELET VOLUME 9.1 fL (8.7-11.7); PLATELET CLUMPS FLAG 0 (0-99); RED BLOOD CELL COUNT 2.38 10^6/uL (4.40-6.38); RED CELL DISTRIBUTION WIDTH 13.2 % (11.5-15.2)
[2016-07-12 05:12] LABS: ADD SCAN? NO; ATYPICAL LYMPHOCYTE FLAG 180 (0-99)
[2016-07-12 05:15] LABS: PLATELET COUNT 11 10^3/uL (150-400)
[2016-07-12 05:16] LABS: ADD DIFF? NO
[2016-07-12 05:32] LABS: PLATELET ESTIMATE DECREASED (ADEQ)
[2016-07-12 05:58] LABS: ANION GAP 9 mEq/L (8-16); CARBON DIOXIDE 24 mEq/l (22-31); CHLORIDE 104 mEq/L (97-110); CREATININE 0.8 mg/dL (0.7-1.3); GLOMERULAR FILTRATION RATE > 60; GLUCOSE 126 mg/dL (70-100); POTASSIUM 3.5 mEq/L (3.5-5.2); SODIUM 137 mEq/L (134-144)
--- NOTE | 2016-07-12 10:01 | PCMIDPN ---
Assessment/Plan: Assessment: Patient well known to our service from prior neutropenic fever episode. Presented again after consolidation chemotherapy with neutropenic fever. Patient has positive blood cultures with E coli. Sensitivity panel unknown at present. Covered with cefepime and Flagyl. Flagyl on necessary given isolate. Will discontinue Flagyl. Continue cefepime 2 g IV q.8 hours. End point is resolution of fever 48 hours and resolution of neutropenia. Plan: 1. Continue cefepime 2 g IV q.8 hours. 2. Discontinue Flagyl. 3. Follow repeat blood cultures which will be drawn tomorrow. 4. Follow up on sensitivity panel for isolated E coli. 07/12/16 09:55 Subjective: Patient is resting in his hospital bed. at his side. Patient appears tired in ill. He complains of headache. Notes fevers and chills that were ongoing yesterday and overnight. No abdominal pain. Objective: Cefepime #1 Metronidazole #1 Fluconazole #2 Vital Signs Temp Pulse Resp BP Pulse Ox 37.8 C 120 H 18 98/53 L 98 07/12/16 08:00 07/12/16 08:00 07/12/16 08:00 07/12/16 08:00 07/12/16 08:00 Laboratory Results 07/12/16 05:00 07/12/16 05:00 07/11/16 07/12/16 07/13/16 05:59 05:59 05:59 Intake Total 1150 1550 1075 Output Total 750 Balance 4883 [id number] [id number] - Physical Exam General Appearance: WD/WN, alert, no apparent distress, toxic (Moderately) Respiratory: lungs clear, normal breath sounds, No respiratory distress Cardiac/Chest: regular rate, rhythm, tachycardia, No irregularly irregular Extremities: non-tender, normal inspection Skin: normal color, warm/dry, No rash Neuro/Psych: alert, normal mood/affect, oriented x 3 ICD10 Worksheet Patient Problems: Problems Problem Status Diagnosed AML (acute myelogenous leukemia) Acute Flu-like symptoms Acute Neutropenic fever Acute Pancytopenia due to antineoplastic chemotherapy Acute
[2016-07-12] MEDS: oxyCODONE IR 5 MG TAB PO PRN (10:03)
[2016-07-12] MEDS: FLUCONAZOLE 100 MG TAB PO SCH (10:03)
--- NOTE | 2016-07-12 13:18 | SOAPPROG ---
SOAP Progress Note Assessment/Plan: Assessment: 1) Neutropenic Fever with E coli bacteremia-on cefepime, remains neutropenic. Appreciate ID input 2) AML-myelomonocytic. NPM/FLT negative. s/p first cycle of consolidation. 3) Headache-fairly severe. States he has had it intermittently for last 2 days. Some degree of of photophobia. No focal neurologic symptoms. ? related to fever , ? bleed, ? leptomeningeal carcinomatosis, ? meningitis. 4) Pancytopenia-secondary to chemo Plan: 1) Head CT to rule out bleed 2) Platelet transfusion for platelet count of 11K 3) If headache worsens, consider LP 4) Continue antibiotics Subjective: complaining of severe Headache for last two days, wants the room dark Objective: Vital Signs Temp Pulse Resp BP Pulse Ox 37.8 C 120 H 18 98/53 L 98 07/12/16 08:00 07/12/16 08:00 07/12/16 08:00 07/12/16 08:00 07/12/16 08:00 Laboratory Results 07/12/16 05:00 07/12/16 05:00 07/11/16 07/12/16 07/13/16 05:59 05:59 05:59 Intake Total 1150 1550 1075 Output Total 750 Balance 8386 [id number] PT 13.1 SEC (12.0-15.0) 07/10/16 20:25 INR 1.00 (0.83-1.16) 07/10/16 20:25 Physical Exam - Physical Exam General Appearance: alert Respiratory: lungs clear Abdomen: non-tender, soft Extremities: No pedal edema ICD10 Worksheet Patient Problems: Problems Problem Status Diagnosed AML (acute myelogenous leukemia) Acute Flu-like symptoms Acute Neutropenic fever Acute Pancytopenia due to antineoplastic chemotherapy Acute
--- NOTE | 2016-07-12 14:45 | HOSPPROG ---
Hospitalist Progress Note Assessment/Plan: DIAGNOSIS: NEUTROPENIC FEVER E COLI BACTEREMIA OF UNCERTAIN SOURCE PANCYTOPENIA DUE TO LEUKEMIA AND CHEMOTHERAPY AML RECEIVING CONSOLIDATION THERAPY, STATUS POST ROUND TWO PLANS: - continue current IV antibiotics -IV fluid resuscitation, I have ordered an extra in L of normal salinebolus now he may need more -infectious disease consult, I have placed order and made a call -follow counts closely, transfusions as indicated I reviewed the patient's condition and care plan today in detail with doctors Yoshi and Nain SUBJECTIVE: still with chills and sweats Complains today of some headache and nausea but no focal neurologic symptoms No other pains or discomforts elsewhere OBJECTIVE Vitals reviewed: Still with High fever, with some tachycardia though blood pressures are better today Exam: alert oriented Looks tired and weak skin warm diaphoretic color ok resps not labored lungs clear BSs heart regular abd soft nondistended nontender, bowel sounds present limbs warm, no edema iv site ok E coli sensitivities are still pending from blood cultures Objective: Vital Signs Temp Pulse Resp BP Pulse Ox 37.8 C 120 H 18 98/53 L 98 07/12/16 08:00 07/12/16 08:00 07/12/16 08:00 07/12/16 08:00 07/12/16 08:00 Laboratory Results 07/12/16 05:00 07/12/16 05:00 07/11/16 07/12/16 07/13/16 06:59 06:59 06:59 Intake Total 1150 2625 Output Total 750 Balance 1150 1875 PT 13.1 SEC (12.0-15.0) 07/10/16 20:25 INR 1.00 (0.83-1.16) 07/10/16 20:25 ICD10 Worksheet Patient Problems: Problems Problem Status Diagnosed AML (acute myelogenous leukemia) Acute Flu-like symptoms Acute Neutropenic fever Acute Pancytopenia due to antineoplastic chemotherapy Acute
[2016-07-12] MEDS ORDERED: NS 1,000 ML IV ONE (15:24)
--- NOTE | 2016-07-12 17:17 | CT ---
CT Brain (Without Contrast) at 1655 hours History: Severe headache, AML, thrombocytopenia, chemotherapy. Comparison: None. Technique: Axial computed tomographic images of the brain without contrast. Dose reduction technique s were utilized. Findings: Ventricles, cisterns, and sulci are normal without atrophy, hydrocephalus, midline shift/h erniation, or epidural/subdural hematomas. No acute intraparenchymal hemorrhage, definite infarct, or mass effect. Bone windows demonstrate no displaced fractures. Moderate mucosal thickening peripheral ly in the right maxillary sinus. Impression: 1. Right maxillary sinusitis. 2. No acute hemorrhage, hydrocephalus or mass effect. 3.Consider MRI of the brain without and with contrast enhancement, if there is continued clinical con cern.
[2016-07-13] MEDS ORDERED: NS 1,000 ML IV ONE ×2 (04:17→12:00)
[2016-07-13] MEDS ORDERED: IOPAMIDOL (ISOVUE-300) 100 ML BTL IV ONE ×2 (04:21→04:27)
[2016-07-13 04:25] LABS: ADD MORPH? NO; ATYPICAL LYMPHOCYTE FLAG 0 (0-99); FRAGMENT RBC FLAG 0 (0-99); HEMATOCRIT 20.3 % (40.0-51.0); HEMOGLOBIN 7.2 g/dL (13.7-17.5); LIPEMIA HEMOLYSIS FLAG 90 (0-99); MEAN CELL HEMOGLOBIN 31.7 pg (27.9-34.1); MEAN CELL HEMOGLOBIN CONCENTR. 35.5 g/dL (32.4-36.7); MEAN CELL VOLUME 89.4 fL (81.5-99.8); MEAN PLATELET VOLUME 10.7 fL (8.7-11.7); PLATELET CLUMPS FLAG 0 (0-99); RED BLOOD CELL COUNT 2.27 10^6/uL (4.40-6.38)
[2016-07-13] MEDS: oxyCODONE IR 5 MG TAB PO PRN (04:25)
[2016-07-13 04:30] LABS: ANION GAP 8 mEq/L (8-16); CALCIUM 7.7 mg/dL (8.5-10.4); CARBON DIOXIDE 24 mEq/l (22-31); CHLORIDE 104 mEq/L (97-110); CREATININE 0.7 mg/dL (0.7-1.3); GLOMERULAR FILTRATION RATE > 60; GLUCOSE 106 mg/dL (70-100); POTASSIUM 3.4 mEq/L (3.5-5.2); SODIUM 136 mEq/L (134-144)
[2016-07-13] MEDS ORDERED: POTASSIUM CL 20 MEQ TAB PO ONE (04:45)
[2016-07-13 04:51] LABS: LEFT SHIFT FLG 150 (0-99)
[2016-07-13 04:51] LABS: INR 1.2 (0.83-1.16); PROTIME(PATIENT) 15.2 SEC (12.0-15.0)
[2016-07-13 04:52] LABS: PLATELET COUNT 25 10^3/uL (150-400)
[2016-07-13 04:53] LABS: ADD SCAN? NO
[2016-07-13 04:58] LABS: ADD DIFF? NO
[2016-07-13 05:03] LABS: BILIRUBIN,TOTAL 0.5 mg/dL (0.1-1.4)
[2016-07-13] MEDS: ACETAMINOPHEN 500 MG TAB PO PRN ×3 (05:04→10:40)
--- NOTE | 2016-07-13 05:10 | CPEKG ---
Heart Rate: 140 RR Interval: 429 P-R Interval: 148 QRSD Interval: 72 QT Interval: 240 QTC Interval: 366 P Slater: 63 QRS Slater: 7 T Wave Slater: 48 EKG Severity - BORDERLINE ECG - EKG Impression: SINUS TACHYCARDIA EKG Impression: BORDERLINE T ABNORMALITIES, ANT-LAT LEADS EKG Impression: EARLY R WAVE PROGRESSION Electronically Signed By: Otis Rajan 13-Jul-2016 19:35:43
[2016-07-13] MEDS: POTASSIUM Cl (KCl) 40 MEQ in NS 1,000 ML IV SCH ×2 (05:34→16:06)
[2016-07-13] MEDS: CEFEPIME HCL 2 GM in D5W 100 ML IV SCH (05:41)
[2016-07-13 06:01] LABS: PLATELET ESTIMATE DECREASED (ADEQ)
--- NOTE | 2016-07-13 06:10 | HOSPPROG ---
Hospitalist Progress Note Assessment/Plan: XC Note: Called regarding unstable vital signs in this 36 yo patient with AML admitted with neutropenic fever, now with E coli bacteremia / sepsis. Chart reviewed. His heart rate trended up to 140-150 (sinus tac by EKG) overnight and he continues to spike fevers. BP as low as 80/60. Some concern for worsening sepsis / septic shock. Rpt lactate normal. After 2 L NS bolus, BP improved to 100/72. However, still quite tachycardic ~150. I don't think he needs pressors at this time. Pt c/o mild headache, no neck stiffness. He also complains of rectal pain/ burning. There was documentation of tevin-rectal tenderness on Onc consult note and given persistent symptoms, CT abd/pelvis was obtained to r/o tevin-rectal abscess, which was negative for a fluid collection. No other intra-abdominal source of his E coli sepsis. I also considered PE given his worsening tachycardia, with increased O2 requirement to 3 LPM. He is not a candidate for anti-coagulation given profound thrombocytopenia, but will check LE dopplers to r/o DVT as would consider IVC filter should he have a DVT. Hgb 7.2 this am. Giving 1 u irradiated prbc's to see if this improves his sinus tac. Will update day team. Subjective: Pt feels "crummy". Has mild headache. Denies neck pain. No CP or SOB. He c/o "tevin-rectal burning". No abdominal pain, N/V. Objective: Vital Signs Temp Pulse Resp BP Pulse Ox 39.2 C H 141 H 20 100/58 L 100 07/13/16 04:02 07/13/16 05:29 07/13/16 05:29 07/13/16 05:29 07/13/16 04:23 Laboratory Results 07/13/16 03:54 07/13/16 03:54 07/11/16 07/12/16 07/13/16 05:59 05:59 05:59 Intake Total 1150 1550 3275 Output Total 750 Balance 5309 841 3349 PT 15.2 SEC (12.0-15.0) H 07/13/16 04:28 INR 1.20 (0.83-1.16) H 07/13/16 04:28 - Physical Exam Constitutional: chronically ill appearing Cardiovascular: regular rate and rhythym Respiratory: no respiratory distress, clear to auscultation Gastrointestinal: normoactive bowel sounds, soft, non-tender abdomen Skin: warm Musculoskeletal: other (neg kernig's) Neurologic: AAOx3 Psychiatric: interacting appropriately ICD10 Worksheet Patient Problems: Problems Problem Status Diagnosed AML (acute myelogenous leukemia) Acute Flu-like symptoms Acute Neutropenic fever Acute Pancytopenia due to antineoplastic chemotherapy Acute
--- NOTE | 2016-07-13 08:12 | US ---
Bilateral Lower Extremity Ultrasound and Venous Duplex Doppler Study History: Tachycardia, hypoxia. Comparison: None available. Technique: High frequency transducer was used for imaging and Doppler study of the veins of the righ t and left lower extremities. Pulsed Doppler and color Doppler were utilized, along with various ma neuvers to assess flow in the veins. Findings: Right: The deep veins of the right lower extremity are normally compressible between the groin and th e upper calf. They have normal Doppler waveforms within them. No venous thrombosis is identified. Left: The deep veins of the left lower extremity are normally compressible between the groin and the upper calf. They have normal Doppler waveforms within them. No venous thrombus is identified. Impression: No evidence of deep vein thrombosis in the lower extremities.
--- NOTE | 2016-07-13 08:57 | HOSPPROG ---
Hospitalist Progress Note Assessment/Plan: DIAGNOSIS: ESBL E COLI BACTEREMIA, SUSPECT PROCTITIS IS THE SOURCE, THEREFORE SUSPECT POLYMICROBIAL WITH ANAEROBES IS PRESENT NEUTROPENIC FEVER ACUTE SEVERE SEPSIS PANCYTOPENIA DUE TO LEUKEMIA AND CHEMOTHERAPY -given hypotension transfusion currently indicated AML RECEIVING CONSOLIDATION THERAPY, STATUS POST ROUND TWO PLANS: -I have changed his antibiotic to Zosyn, and will review with Dr. Nguyen when she arrives today -I have placed the patient on contact isolation for ESBL -1 unit rbc being given -continue fluid resuscitations this morning -follow counts closely, further transfusions as indicated I reviewed the patient's condition and care plan today in detail [place] [facility] [place]: still with chills and sweats and diffuse headache without neurologic symptoms Also still having some rectal pain but no abdominal pain, no nausea or vomiting OBJECTIVE Vitals reviewed: Still with High fever, with some tachycardia though blood pressures are better today Exam: alert oriented Looks tired and weak skin warm diaphoretic color ok resps not labored lungs clear BSs heart regular abd soft nondistended nontender, bowel sounds present limbs warm, no edema iv site ok Lab now reporting E coli is ESBL, resistant to cefepime in quinolones; he is allergic to meropenem White blood cell count now at 4:00 a.m. 50 with 90 neutrophils, platelets up to 25,000, hemoglobin down at 7.2 CT scan of abdomen done this morning, my personal review of images and interpretation, also have reviewed the radiologist's report: Soft tissue thickening and edema in the perianal/rectal area without drainable abscess is the major finding. The gallbladder is distended not inflamed. No other abscesses, free air, or organ inflammation Objective: Vital Signs Temp Pulse Resp BP Pulse Ox 37.3 C 125 H 14 98/64 L 97 07/13/16 08:00 07/13/16 08:27 07/13/16 08:00 07/13/16 08:27 07/13/16 08:00 Laboratory Results 07/13/16 03:54 07/13/16 03:54 07/12/16 07/13/16 07/14/16 06:59 06:59 06:59 Intake Total 2625 5666 Output Total 750 Balance 1875 5666 PT 15.2 SEC (12.0-15.0) H 07/13/16 04:28 INR 1.20 (0.83-1.16) H 07/13/16 04:28 ICD10 Worksheet Patient Problems: Problems Problem Status Diagnosed AML (acute myelogenous leukemia) Acute Flu-like symptoms Acute Neutropenic fever Acute Pancytopenia due to antineoplastic chemotherapy Acute
[2016-07-13] MEDS: PIPERACILLIN NA/TAZO 4.5 GM in D5W 100 ML IV SCH ×3 (09:18→19:32)
[2016-07-13] MEDS: FLUCONAZOLE 100 MG TAB PO SCH (09:23)
--- NOTE | 2016-07-13 09:30 | PCMIDPN ---
Assessment/Plan: 1. ESBL E coli bacteremia in patient with underlying AML and neutropenia: This is almost certainly secondary to proctitis/perirectal abscess. Patient has no drainable focus secondary to neutropenia, but I am concerned about the area of necrosis in the perianal area. I spoke to Dr. Chaudhry, recommending a surgery consult to err on the side of caution. She has placed a call to Dr. Silva. Continue Zosyn as is. Hopefully he will not develop a rash to this antibiotic. I am here all weekend, and will be vigilant to examine his skin carefully. Contact isolation is in place. Hold off on repeating blood cultures for now as the patient is day 0 on the correct antibiotic. Likely repeat cultures tomorrow. If feasible, the patient will need his PICC line changed prior to discharge. Subjective: I was notified by Dr. Walker this morning that the patient has an ESBL E coli in his blood, and apparently there was no call from the microbiology lab. Patient is intermittently hypotensive, requiring fluid boluses. Metronidazole was discontinued yesterday, and he has been on cefepime. Dr. Walker changed his antibiotics to Zosyn (organism is susceptible, interestingly to this antibiotic). He had an abdominal CT scan early this morning with IV contrast. I reviewed this with Dr. Guerra; this revealed some mild inflammation in the perianal/perirectal area consistent with proctitis. He also had a large gallbladder with no evidence of cholecystitis. No other findings noted. No drainable focus. The patient states he has a mild headache, and is actively rigoring in the room. Continues to have perianal discomfort. Last bowel movement was yesterday. Talked about the importance of keeping the area nice and clean after a bowel movement. Denies abdominal pain, nausea or vomiting. No cough. No burning when he urinates. No sores in his mouth. Feels very tired. Objective: T-max 39.6degrees Zosyn 4.5 g IV q.6 hours day 0 Status post cefepime and metronidazole Fluconazole 100 mg daily day 3 Vital Signs Temp Pulse Resp BP Pulse Ox 37.3 C 125 H 14 98/64 L 97 07/13/16 08:00 07/13/16 08:27 07/13/16 08:00 07/13/16 08:27 07/13/16 08:00 Laboratory Results 07/13/16 03:54 07/13/16 03:54 07/12/16 07/13/16 07/14/16 05:59 05:59 05:59 Intake Total 1550 6741 Output Total 750 Balance 800 6741 Blood cultures July 10 are growing ESBL E coli, susceptible to Zosyn - Physical Exam General Appearance: other (Looks tired. Actively rigoring) EENT: pharynx normal, other (No oral lesions noted), No thrush Respiratory: lungs clear Cardiac/Chest: tachycardia Abdomen: non-tender, soft Rectal: other (Left upper quadrant, perianally the patient has a half-dollar sized round area of what looks to be necrosis/ecchymosis it is extremely tender in this area. No obvious erythema. ) Skin: No rash ICD10 Worksheet Patient Problems: Problems Problem Status Diagnosed AML (acute myelogenous leukemia) Acute Flu-like symptoms Acute Neutropenic fever Acute Pancytopenia due to antineoplastic chemotherapy Acute
--- NOTE | 2016-07-13 09:30 | CT ---
CT Scan of the Abdomen and Pelvis (With Contrast) 0 452 hours History: Severe pelvic and perirectal pain. E. Coli bacteremia. Rule out abscess. Technique: Axial computed tomographic images of the abdomen and pelvis were obtained with the unevent ful intravenous administration of 100 mL Isovue-300 contrast. . Images were reviewed in multiple plan es. Dose reduction techniques were utilized. Comparison to prior CT study of May 09, 2016. CT Abdomen and Pelvis Findings: There has been significant reduction of mesenteric lymphadenopathy since the prior study. Residual ly mph node in the central mesentery on series 4 image 177 measures 27 x 22 mm (previously 55 x 49 mm). There has been a slight increase in size of left external iliac node at the level of the left hip on image 201 that now measures 16 x 13 mm (previously 10 x 7 mm). Left inguinal node is also larger maryann uring 16 x 12 mm in image 332 (previously 11 x 9 mm). Lung bases: Normal. Liver: Normal. Spleen: Normal. Gallbladder and Bile Ducts: The gallbladder is distended slightly more than on the prior study. Ther e is no evidence of radiopaque calculi within the gallbladder or gallbladder wall thickening. No tevin cholecystic fluid is seen. There is no biliary ductal dilatation. Pancreas: Normal. Adrenals: Normal. Kidneys: No obstruction or solid masses. Abdominal Aorta: No aneurysm. Pelvic structures: There are no pelvic masses or evidence of pelvic abscess. Bladder: Normal. Appendix: Normal. Bowel Loops: There is some thickening of the rectum near the anus. No perirectal abscess is seen. Th ere are a few uncomplicated diverticula of the descending and sigmoid colons. The remainder the bowel loops are normal in appearance. No bowel obstruction or ascites. Skeletal system: Vertebral body heights are well-maintained. There are no significant lytic or scler otic osseous lesions. Impression: 1. Interval significant decrease in central mesenteric lymphadenopathy. 2. No CT evidence of appendicitis, abscess or bowel obstruction. 3. Distended gallbladder slightly more than on the prior study. 4. Thickening of the rectum near the anus possibly from underlying inflammation without focal mass. 5. Mild increase in size of left external iliac and left inguinal node. It is indeterminate if this r epresents reactive change or related to underlying leukemia/lymphoma. The study was performed as an emergency on-call case and discussed by telephone with Dr. Keyla ordoñez at 0505 hrs. An additional communication by text was also sent at 926 hours.
[2016-07-13] MEDS ORDERED: PIPERACILLIN NA/TAZO 4.5 GM in D5W 100 ML IV SCH (12:00)
[2016-07-13] MEDS ORDERED: PIPERACILLIN/TAZO 4.5 GM/DEX 100 ML IV SCH (12:00)
--- NOTE | 2016-07-13 13:48 | SOAPPROG ---
SOAP Progress Note Assessment/Plan: Assessment: * Neutropenic fever. * E. coli bacteremia. * Perirectal abscess/proctitis. * Pancytopenia due to chemotherapy. * AML in remission, s/p 1 cycle HIDAC. Plan: * Abx changed to Zosyn (ESBL E coli and anaerobic coverage for perirectal process). * Surgery will be following the patient. * Will eventually need new PICC. * Transfuse. * Eventual consultation with [facility] (scheduled for today). Discussed with Ricardo Starkey Morgan. 07/13/16 13:53 Subjective: S: Perirectal pain. Just got morphine. Mother in room. No PRABHAKAR, ST, SOB, AP. O: VS reviewed. Mild hypotension earlier today, presistent fever. Gen: fatigued, NAD. CV: no edema. Lungs: CTA. Abd: soft, NT. Perirectal exam: now with ecchymosis and skin breakdown upper perirectal area ( 11-12:00). No fluctuance, pus. Skin: RUE PICC site nontender. Microbiology 07/10/16 20:25 Blood Blood Panel (PCR) - Final Escherichia Coli 07/10/16 20:30 Blood Blood Culture - Preliminary Escherichia Coli Esbl 07/10/16 20:25 Blood Blood Culture - Preliminary 07/10/16 20:25 Blood Escherichia Coli Esbl Laboratory Tests 07/13/16 03:54 WBC 0.45 L* Hgb 7.2 L Plt Count 25 L* Creatinine 0.7 Objective: Vital Signs Temp Pulse Resp BP Pulse Ox 37.1 C 130 H 20 82/58 L 96 07/13/16 13:00 07/13/16 13:00 07/13/16 13:00 07/13/16 13:00 07/13/16 13:00 Laboratory Results 07/13/16 03:54 07/13/16 03:54 07/12/16 07/13/16 07/14/16 05:59 05:59 05:59 Intake Total 1550 6741 850 Output Total 750 Balance 800 6741 850 PT 15.2 SEC (12.0-15.0) H 07/13/16 04:28 INR 1.20 (0.83-1.16) H 07/13/16 04:28 ICD10 Worksheet Patient Problems: Problems Problem Status Diagnosed AML (acute myelogenous leukemia) Acute Flu-like symptoms Acute Neutropenic fever Acute Pancytopenia due to antineoplastic chemotherapy Acute
--- NOTE | 2016-07-13 20:06 | SOAPPROG ---
SOAP Progress Note Assessment/Plan: Assessment: will dictate full consult. Saw around 10:30 am. Pain at anus CT essentially negative On physical exam, fullness at anal verge with necrosis along left lateral pile. No abscess. Querry thrombosed hemorroid with some deep tissue injury. very painful. If worsens will need anesthesia to fully evaluate. Plan: 07/13/16 20:04 Objective: Vital Signs Temp Pulse Resp BP Pulse Ox 36.8 C 119 H 18 94/66 L 94 07/13/16 15:14 07/13/16 15:14 07/13/16 15:14 07/13/16 15:14 07/13/16 15:14 Laboratory Results 07/13/16 03:54 07/13/16 03:54 07/12/16 07/13/16 07/14/16 05:59 05:59 05:59 Intake Total 1550 6741 4575 Output Total 750 Balance 800 6741 4575 PT 15.2 SEC (12.0-15.0) H 07/13/16 04:28 INR 1.20 (0.83-1.16) H 07/13/16 04:28 ICD10 Worksheet Patient Problems: Problems Problem Status Diagnosed AML (acute myelogenous leukemia) Acute Flu-like symptoms Acute Neutropenic fever Acute Pancytopenia due to antineoplastic chemotherapy Acute
--- NOTE | 2016-07-13 21:06 | GCON ---
[f rep st] CONSULTATION GENERAL SURGERY CONSULTATION DATE OF CONSULTATION: 07/13/2016 REFERRING PHYSICIAN: Taya Chaudhry MD REASON FOR CONSULTATION: Perianal pain. HISTORY OF PRESENT ILLNESS: The patient is a 36-year-old man whom I diagnosed with AML in April 2016. He has been followed with [facility]. He was most recently readmitted for fever to 103. He was neutropenic. He did complain of perirectal pain. He had a CT scan performed of his pelvis which did not show any discrete abscess, although is immune response is low, so this may be difficult to mount. He does not have any pain unless it is touched. PAST MEDICAL HISTORY: AML. PAST SURGICAL HISTORY: Biopsy. MEDICATIONS: None. ALLERGIES: No known drug allergies. SOCIAL HISTORY: Denies tobacco or alcohol use. He works in IT. FAMILY HISTORY: No history of cancer. PHYSICAL EXAM: GENERAL: The patient is sitting in bed. He is pleasant. HEENT : Normocephalic. No gross hearing deficits. Mucous membrane is dry. Pupils equal and round. LUNGS: No increased work of breathing. CARDIAC: Regular rate. ABDOMEN: Deferred. : Deferred. RECTUM: On the left lateral pile he has a thrombosed hemorrhoid along the anal verge with some tracking. He does have some perianal erythema. It is difficult to discern if this is an unusual thrombosed hemorrhoid that has tracked with some component of a deep tissue injury. IMPRESSION AND PLAN: The patient is a 36-year-old man with acute myelogenous leukemia who with neutropenic who has a perianal sore. It does not appear to be acutely infected. I am not sure of the etiology. It could be a thrombosed hemorrhoid extending laterally. He certainly does have moisture in the perianal area and I have recommended zinc cream to his buttocks to help control the chafing. If he worsens and requires a more extensive exam, this will need to be done under anesthesia, as he is so tender. /[id number]/MODL MTDD
--- NOTE | 2016-07-13 23:05 | CPEKG ---
Heart Rate: 105 RR Interval: 571 P-R Interval: 164 QRSD Interval: 78 QT Interval: 316 QTC Interval: 418 P Check: 49 QRS Check: 5 T Wave Check: 45 EKG Severity - OTHERWISE NORMAL ECG - EKG Impression: SINUS TACHYCARDIA Electronically Signed By: Otis Rajan 14-Jul-2016 12:13:25
[2016-07-13] MEDS ORDERED: NS 500 ML IV ONE (23:11)
[2016-07-13] MEDS ORDERED: ADENOSINE 6 MG/2 ML VIAL ONE (23:30)
[2016-07-14] MEDS: PIPERACILLIN NA/TAZO 4.5 GM in D5W 100 ML IV SCH ×2 (00:16→05:47)
[2016-07-14] MEDS: POTASSIUM Cl (KCl) 40 MEQ in NS 1,000 ML IV SCH ×3 (02:50→22:34)
[2016-07-14 06:03] LABS: ADD DIFF? YES; ADD MORPH? NO; ATYPICAL LYMPHOCYTE FLAG 0 (0-99); FRAGMENT RBC FLAG 0 (0-99); HEMATOCRIT 21.5 % (40.0-51.0); HEMOGLOBIN 7.4 g/dL (13.7-17.5); LIPEMIA HEMOLYSIS FLAG 90 (0-99); MEAN CELL HEMOGLOBIN 30.8 pg (27.9-34.1); MEAN CELL HEMOGLOBIN CONCENTR. 34.4 g/dL (32.4-36.7); MEAN CELL VOLUME 89.6 fL (81.5-99.8); MEAN PLATELET VOLUME 10.8 fL (8.7-11.7); PLATELET CLUMPS FLAG 0 (0-99); RED CELL DISTRIBUTION WIDTH 14.5 % (11.5-15.2)
[2016-07-14 06:18] LABS: ANION GAP 10 mEq/L (8-16); CARBON DIOXIDE 21 mEq/l (22-31); CHLORIDE 111 mEq/L (97-110); CREATININE 0.7 mg/dL (0.7-1.3); GLOMERULAR FILTRATION RATE > 60; GLUCOSE 100 mg/dL (70-100); POTASSIUM 4.1 mEq/L (3.5-5.2); SODIUM 142 mEq/L (134-144)
[2016-07-14 06:36] LABS: ADD SCAN? NO; LEFT SHIFT FLG 300 (0-99); PLATELET COUNT 22 10^3/uL (150-400)
[2016-07-14] MEDS: FLUCONAZOLE 100 MG TAB PO SCH (07:59)
[2016-07-14] MEDS: oxyCODONE IR 5 MG TAB PO PRN (07:59)
[2016-07-14 08:45] LABS: ELLIPTOCYTES 1+
[2016-07-14 08:46] LABS: PLATELET ESTIMATE DECREASED (ADEQ)
--- NOTE | 2016-07-14 09:16 | SOAPPROG ---
SOAP Progress Note Assessment/Plan: Assessment/Plan - 36yo M c AML and perirectal skin lesion - Pain appears better controlled today, WBC up to 1.7 which is reassuring - On exam, skin appears purple, no fluctuance or drainable collection appreciated - Given neutropenia and lack of drainable collection will hold of on any intervention, as his WBCs rise, he may develop abscess and would drain at that time but do not appreciate that currently 07/14/16 09:13 07/14/16 09:14 Subjective: No new complaints, no drainage from perianal wound Objective: Vital Signs Temp Pulse Resp BP Pulse Ox 37.1 C 100 16 100/70 98 07/14/16 08:31 07/14/16 08:31 07/14/16 08:31 07/14/16 08:31 07/14/16 08:31 Laboratory Results 07/14/16 05:20 07/14/16 05:20 07/13/16 07/14/16 07/15/16 05:59 05:59 05:59 Intake Total 6741 4875 Balance 6741 4875 PT 15.2 SEC (12.0-15.0) H 07/13/16 04:28 INR 1.20 (0.83-1.16) H 07/13/16 04:28 ICD10 Worksheet Patient Problems: Problems Problem Status Diagnosed AML (acute myelogenous leukemia) Acute Flu-like symptoms Acute Neutropenic fever Acute Pancytopenia due to antineoplastic chemotherapy Acute
--- NOTE | 2016-07-14 09:37 | PCMIDPN ---
Assessment/Plan: 1. ESBL E coli bacteremia secondary to developing perirectal abscess: Patient overall looks markedly better compared with yesterday when I saw him. Given his white blood cell count recovery, he is now clearly developing an abscess in this area; it is fluctuant to me on exam today. It remains extremely tender. Agree that he will need this opened up the operating room, likely tomorrow or Saturday. Repeat blood cultures today to document clearance of bacteremia. Continue Zosyn as is. As neutropenia resolves, will back down on Zosyn dose from present anti pseudomonal dose, but not today. 2. History of rash to meropenem: So far so good on Zosyn. Will continue to be vigilant for the development of a drug eruption. Subjective: Fever curve coming down. No longer rigoring. Continues to have significant perirectal discomfort, worse with bowel movements. No nausea or vomiting. Feels hungry. No rash. 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 Temp Pulse Resp BP Pulse Ox 37.1 C 100 16 100/70 98 07/14/16 08:31 07/14/16 08:31 07/14/16 08:31 07/14/16 08:31 07/14/16 08:31 Laboratory Results 07/14/16 05:20 07/14/16 05:20 07/13/16 07/14/16 07/15/16 05:59 05:59 05:59 Intake Total 6741 4875 Balance 6741 4875 Blood cultures previously have grown ESBL E coli - Physical Exam General Appearance: alert, no apparent distress EENT: pharynx normal, No scleral icterus, No thrush Respiratory: lungs clear Cardiac/Chest: tachycardia Abdomen: non-tender, soft Rectal: other (The patient has a quarter-sized area of purplish discoloration at approximately 10 o'clock along the anal verge, that is fluctuant and extremely tender. No surrounding cellulitis, per se.) Skin: No rash ICD10 Worksheet Patient Problems: Problems Problem Status Diagnosed AML (acute myelogenous leukemia) Acute Flu-like symptoms Acute Neutropenic fever Acute Pancytopenia due to antineoplastic chemotherapy Acute
[2016-07-14] MEDS: ONDANSETRON DISINTEGRATING 4 MG TAB PO PRN ×2 (10:52→15:15)
[2016-07-14] MEDS: HYDROCODONE/APAP 5/325 TAB PO PRN (12:11)
--- NOTE | 2016-07-14 12:45 | SOAPPROG ---
SOAP Progress Note Assessment/Plan: Assessment/Plan: 36 yo gentleman w AML in remission s/p C1 HIDAC who p/w neutropenic fever/E coli bacteremia 1. Neutropenic fever/E coli bacteremia - on IV abx; WBC improving and fever seems to be trending down Although I did not examine pt's tevin rectal area today (due to pain and multiple other exams today), seems to be developing a perirectal abscess now that WBC have improved will eventually need a new PICC Appreciate ID and surgery 2. Abscess - will likely need to go to OR once WBC/RBCs have improved 3. Pancytopenia - starting to improve; no tx required today 4. AML - eventual consultation w [facility] 07/14/16 12:41 07/14/16 12:43 07/14/16 12:46 Subjective: Pt asleep after pain meds No acute events but abscess apparently more obvious now Objective: Vital Signs Temp Pulse Resp BP Pulse Ox 37.1 C 100 16 100/70 98 07/14/16 08:31 07/14/16 08:31 07/14/16 08:31 07/14/16 08:31 07/14/16 08:31 Laboratory Results 07/14/16 05:20 07/14/16 05:20 07/13/16 07/14/16 07/15/16 05:59 05:59 05:59 Intake Total 6741 4875 500 Balance 6741 4875 500 PT 15.2 SEC (12.0-15.0) H 07/13/16 04:28 INR 1.20 (0.83-1.16) H 07/13/16 04:28 Vitals reviewed Gen - sleeping CV - tachy Chest - CTA anteriorly abd - soft, BS+ ext - mild edema bilaterally ICD10 Worksheet Patient Problems: Problems Problem Status Diagnosed AML (acute myelogenous leukemia) Acute Flu-like symptoms Acute Neutropenic fever Acute Pancytopenia due to antineoplastic chemotherapy Acute
[2016-07-14] MEDS: PIPERACILLIN/TAZO 4.5 GM/DEX 100 ML IV SCH ×2 (12:58→18:43)
--- NOTE | 2016-07-14 13:01 | HOSPPROG ---
Hospitalist Progress Note Assessment/Plan: DIAGNOSIS: ESBL E COLI BACTEREMIA, SUSPECT PROCTITIS IS THE SOURCE, THEREFORE SUSPECT POLYMICROBIAL WITH ANAEROBES IS PRESENT NEUTROPENIC FEVER ACUTE SEVERE SEPSIS PANCYTOPENIA DUE TO LEUKEMIA AND CHEMOTHERAPY -given hypotension transfusion currently indicated AML RECEIVING CONSOLIDATION THERAPY, STATUS POST ROUND TWO PLANS: - continue Zosyn at high dose -I have placed the patient on contact isolation for ESBL -continue fluid resuscitations as needed -follow counts closely, further transfusions as indicated -He will likely need debridement of his perianal tissue 1 cell counts allow, but I agree at this time this is not emergent I reviewed the patient's condition and care plan today in detail with doctors Ruby and Edi SUBJECTIVE: feels slightly better overall today, less chills and sweats Still with minimal appetite Still with perianal pain OBJECTIVE Vitals reviewed: Still with fever but notably lower than past few days; did have heart rates as high as 200 last night with sinus tachycardia but his pulse is down below 100 for the 1st time in a long time now, respirations and blood pressures OK Exam: alert oriented Still looks tired and weak skin warm diaphoretic color ok resps not labored lungs clear BSs heart regular abd soft nondistended nontender, bowel sounds present limbs warm, no edema iv site ok Lab now reporting E coli is ESBL, resistant to cefepime in quinolones; he is allergic to meropenem total white count now at 1720 but neutrophils not measured today for some reason Red cell and platelet counts still quite low but stable without any need for transfusion at this timentinue Zosy Objective: Vital Signs Temp Pulse Resp BP Pulse Ox 37.1 C 100 16 100/70 98 07/14/16 08:31 07/14/16 08:31 07/14/16 08:31 07/14/16 08:31 07/14/16 08:31 Laboratory Results 07/14/16 05:20 07/14/16 05:20 07/13/16 07/14/16 07/15/16 06:59 06:59 06:59 Intake Total 5666 4875 500 Balance 5666 4875 500 PT 15.2 SEC (12.0-15.0) H 07/13/16 04:28 INR 1.20 (0.83-1.16) H 07/13/16 04:28 ICD10 Worksheet Patient Problems: Problems Problem Status Diagnosed AML (acute myelogenous leukemia) Acute Flu-like symptoms Acute Neutropenic fever Acute Pancytopenia due to antineoplastic chemotherapy Acute
[2016-07-15] MEDS: PIPERACILLIN/TAZO 4.5 GM/DEX 100 ML IV SCH ×5 (00:05→23:25)
[2016-07-15] MEDS: ACETAMINOPHEN 500 MG TAB PO PRN ×4 (02:47→21:07)
[2016-07-15] MEDS: oxyCODONE IR 5 MG TAB PO PRN ×2 (04:20→11:20)
[2016-07-15] MEDS: FLUCONAZOLE 100 MG TAB PO SCH (08:41)
[2016-07-15 08:56] LABS: ABSOLUTE NRBC COUNT 0.02 10^3/uL (0-0.01); ADD DIFF? YES; ADD MORPH? NO; ADD SCAN? YES; ATYPICAL LYMPHOCYTE FLAG 0 (0-99); FRAGMENT RBC FLAG 0 (0-99); HEMATOCRIT 20.5 % (40.0-51.0); LIPEMIA HEMOLYSIS FLAG 90 (0-99); MEAN CELL HEMOGLOBIN 31.1 pg (27.9-34.1); MEAN CELL HEMOGLOBIN CONCENTR. 34.1 g/dL (32.4-36.7); MEAN CELL VOLUME 91.1 fL (81.5-99.8); MEAN PLATELET VOLUME 11.4 fL (8.7-11.7); NRBC-AUTO% 0.3 % (0.0-0.2); PLATELET CLUMPS FLAG 10 (0-99); RED BLOOD CELL COUNT 2.25 10^6/uL (4.40-6.38); RED CELL DISTRIBUTION WIDTH 14.7 % (11.5-15.2)
[2016-07-15 09:09] LABS: ALANINE AMINOTRANSFERASE 36 IU/L (21-72); ALKALINE PHOSPHATASE 89 IU/L (38-126); ANION GAP 5 mEq/L (8-16); ASPARTATE AMINOTRANSFERASE 22 IU/L (17-59); BILIRUBIN,TOTAL 0.6 mg/dL (0.1-1.4); CALCIUM 7.7 mg/dL (8.5-10.4); CARBON DIOXIDE 23 mEq/l (22-31); CHLORIDE 110 mEq/L (97-110); CREATININE 0.7 mg/dL (0.7-1.3); GLOMERULAR FILTRATION RATE > 60; GLUCOSE 105 mg/dL (70-100); POTASSIUM 4.3 mEq/L (3.5-5.2); SODIUM 138 mEq/L (134-144); TOTAL PROTEIN 4.5 g/dL (6.3-8.2)
[2016-07-15 09:18] LABS: LEFT SHIFT FLG 300 (0-99); PLATELET COUNT 33 10^3/uL (150-400)
--- NOTE | 2016-07-15 10:39 | PCMIDPN ---
Assessment/Plan: 1. ESBL E coli bacteremia secondary to perirectal abscess: Much worse today as his white cells recover, with new cellulitis of the perineum and right buttock with extension to the scrotal sac. No evidence of Jonn's gangrene at this point in time. The patient clearly needs to go to the operating room today to have this abscess thoroughly incised and drained. Continue Zosyn at present dose. The time I am writing this note, we are paging General surgery. Patient is NPO. 2. History of rash to meropenem: No problems so far on Zosyn. Subjective: He tells me my scrotum is twice the size it normally is. Is also complaining of worsening pain in the perirectal area. No nausea or vomiting or rash. Objective: Vital Signs Zosyn 4.5 g IV q.6 hours day 2 Fluconazole 100 mg daily day 5 Temp Pulse Resp BP Pulse Ox 36.4 C 96 16 100/72 93 07/15/16 08:44 07/15/16 08:44 07/15/16 08:44 07/15/16 08:44 07/15/16 08:44 Laboratory Results 07/15/16 08:44 07/15/16 08:44 07/14/16 07/15/16 07/16/16 05:59 05:59 05:59 Intake Total 4875 4095 Balance 4875 4095 Blood culture July 14 pending July 10 blood culture with ESBL E coli - Physical Exam General Appearance: alert, other (Looks uncomfortable secondary to pain, but nontoxic.) Respiratory: lungs clear Rectal: other (New cellulitis in the perineal area with erythema and [place] induration of the right buttock. Quarter-sized fluctuant abscess palpable, with purple/red discoloration. Significantly tender. Scrotal sac swollen and erythematous.) Skin: No rash ICD10 Worksheet Patient Problems: Problems Problem Status Diagnosed AML (acute myelogenous leukemia) Acute Flu-like symptoms Acute Neutropenic fever Acute Pancytopenia due to antineoplastic chemotherapy Acute
--- NOTE | 2016-07-15 10:55 | SOAPPROG ---
SOAP Progress Note Assessment/Plan: Assessment/Plan: 36 yo gentleman w AML in remission s/p C1 HIDAC who p/w neutropenic fever/E coli bacteremia 1. Neutropenic fever/E coli bacteremia - on IV abx; WBC improving and fever seems to be trending down However, rectal area worse and now developing a cellulitis/scrotal edema Plan to go to OR today will eventually need a new PICC Appreciate ID and surgery 2. Abscess - OR today; transfuse 1 unit PRBCs and 1 unit apheresed plts today. Blood products irradiated and CMV negative as pt is a BM tx candidate 3. Pancytopenia - improving on own but transfusing today for procedure 4. AML - eventual consultation w [facility]I 07/15/16 10:51 Subjective: Reports scrotal swelling and more pain in perirectal area Objective: Vital Signs Temp Pulse Resp BP Pulse Ox 36.4 C 96 16 100/72 93 07/15/16 08:44 07/15/16 08:44 07/15/16 08:44 07/15/16 08:44 07/15/16 08:44 Laboratory Results 07/15/16 08:44 07/15/16 08:44 07/14/16 07/15/16 07/16/16 05:59 05:59 05:59 Intake Total 4875 4095 Balance 4875 4095 PT 15.2 SEC (12.0-15.0) H 07/13/16 04:28 INR 1.20 (0.83-1.16) H 07/13/16 04:28 Gen - NAD HEENT - anicteric CV - RRR Lungs - clear - perirectal area w fluctuance; scrotal edema and cellulitis noted ICD10 Worksheet Patient Problems: Problems Problem Status Diagnosed AML (acute myelogenous leukemia) Acute Flu-like symptoms Acute Neutropenic fever Acute Pancytopenia due to antineoplastic chemotherapy Acute
[2016-07-15] MEDS: POTASSIUM Cl (KCl) 40 MEQ in NS 1,000 ML IV SCH ×2 (11:18→22:34)
[2016-07-15 11:48] LABS: PLATELET ESTIMATE DECREASED (ADEQ)
--- NOTE | 2016-07-15 11:49 | HOSPPROG ---
Hospitalist Progress Note Assessment/Plan: This patient is admitted July 10 was neutropenic fevers in the setting of pancytopenia for AML. His source of infection appears to be perianal where he has significant cellulitis but no abscess. Blood cultures are growing a resistant E coli, ESBL. DIAGNOSIS: -ESBL E COLI BACTEREMIA, SUSPECT P PERIANAL INFECTION IS THE SOURCE, THEREFORE SUSPECT POLYMICROBIAL WITH ANAEROBES IS PRESENT (no abscess on -CT scan) -WORSENING PERIANAL INFECTION SPREADING TO THE BUTTOCK AND PERINEAL AREA AND TO THE SCROTUM WITH CELLULITIS BUT NO SIGN OF NECROSIS -NEUTROPENIC FEVER -ACUTE SEVERE SEPSIS (this has now finally resolved) -PANCYTOPENIA DUE TO LEUKEMIA AND CHEMOTHERAPY - white cell count now recovering nicely -AML RECEIVING CONSOLIDATION THERAPY, STATUS POST ROUND TWO PLANS: -continue Zosyn at high dose -I have placed the patient on contact isolation for ESBL -continue fluid resuscitations as needed -follow counts closely, further transfusions as indicated -He will likely need surgical exploration of his focal infection and Dr Pond has seen him and will taken to the or today - I reviewed the patient's condition and care plan today in detail with doctors Ruby and Edi -as the patient is a candidate for transplant all of his transfusions need to be appropriate for this purpose SUBJECTIVE: feels slightly better overall today, less chills and sweats Still with minimal appetite Still with perianal pain OBJECTIVE Vitals reviewed: Fevers now resolved for greater than 24 hours and his vital signs are now normalizing nicely Exam: alert oriented Looks slightly more energetic, but fairly uncomfortable still skin warm diaphoretic color ok resps not labored lungs clear BSs heart regular abd soft nondistended nontender, bowel sounds present Still with significant perianal inflammation and cellulitis has now spread into his right buttock perineal area and the posterior aspect of the scrotum, there is no black areas, necrosis, skin openings or ulcerations limbs warm, no edema iv site ok Lab now reporting E coli is ESBL, resistant to cefepime in quinolones; he is allergic to meropenem Objective: Vital Signs Temp Pulse Resp BP Pulse Ox 37.0 C 96 18 112/68 100 07/15/16 11:37 07/15/16 11:37 07/15/16 11:37 07/15/16 11:37 07/15/16 11:37 Laboratory Results 07/15/16 08:44 07/15/16 08:44 07/14/16 07/15/16 07/16/16 06:59 06:59 06:59 Intake Total 4875 4095 Balance 4875 4095 PT 15.2 SEC (12.0-15.0) H 07/13/16 04:28 INR 1.20 (0.83-1.16) H 07/13/16 04:28 ICD10 Worksheet Patient Problems: Problems Problem Status Diagnosed AML (acute myelogenous leukemia) Acute Flu-like symptoms Acute Neutropenic fever Acute Pancytopenia due to antineoplastic chemotherapy Acute
[2016-07-15] MEDS ORDERED: BUPIVACAINE 0.5% 30 ML SDV ONE (12:06)
--- NOTE | 2016-07-15 14:03 | SOAPPROG ---
SOAP Progress Note Assessment/Plan: Assessment/Plan - 36yo M c AML and perirectal skin lesion - site now fluctuant and markedly tender with cellulitis tracking anteriorly. ? early nec fasc. Needs OR today for debridement. PRBCs and platelets bronze chaser for OR. - RBA discussed 07/14/16 09:13 07/14/16 09:14 07/15/16 14:01 Subjective: more pain, feeling worse Objective: Vital Signs Temp Pulse Resp BP Pulse Ox 37.0 C 96 18 112/68 100 07/15/16 11:37 07/15/16 11:37 07/15/16 11:37 07/15/16 11:37 07/15/16 11:37 Laboratory Results 07/15/16 08:44 07/15/16 08:44 07/14/16 07/15/16 07/16/16 05:59 05:59 05:59 Intake Total 4875 4095 Balance 4875 4095 PT 15.2 SEC (12.0-15.0) H 07/13/16 04:28 INR 1.20 (0.83-1.16) H 07/13/16 04:28 ICD10 Worksheet Patient Problems: Problems Problem Status Diagnosed AML (acute myelogenous leukemia) Acute Flu-like symptoms Acute Neutropenic fever Acute Pancytopenia due to antineoplastic chemotherapy Acute
[2016-07-15] MEDS ORDERED: PROPOFOL/EMULSION 500 MG/50 ML BOTTLE IV ONE (14:04)
[2016-07-15] MEDS ORDERED: fentaNYL 100 MCG/2 ML INJ ONE (14:04)
--- NOTE | 2016-07-15 15:43 | POSTOPPROG ---
Post Op Note Date of Operation: 07/15/16 Surgeon: Bob Allen Anesthesiologist: Ray Mancera Anesthesia: GET(General Endotracheal) Pre-op Diagnosis: Perirectal abscess Post-op Diagnosis: same Procedure: EUA, I&D of perirectal Findings: 8x5cm area of necrotic skin, debrided down to clean fat Inf/Abcess present in the surg proc area at time of surgery?: Yes Depth: Deep Incisional (Fascial) EBL: Minimal Specimen(s): Perirectal skin
[2016-07-15] MEDS ORDERED: ALTEPLASE 2 MG VIAL IVP PRN (17:03)
[2016-07-16] MEDS: oxyCODONE IR 5 MG TAB PO PRN (00:28)
[2016-07-16] MEDS: PIPERACILLIN/TAZO 4.5 GM/DEX 100 ML IV SCH ×3 (05:11→17:21)
[2016-07-16 05:33] LABS: ADD DIFF? YES; ADD MORPH? NO; ATYPICAL LYMPHOCYTE FLAG 0 (0-99); FRAGMENT RBC FLAG 0 (0-99); HEMATOCRIT 20.4 % (40.0-51.0); HEMOGLOBIN 7.1 g/dL (13.7-17.5); LIPEMIA HEMOLYSIS FLAG 90 (0-99); MEAN CELL HEMOGLOBIN 32.1 pg (27.9-34.1); MEAN CELL HEMOGLOBIN CONCENTR. 34.8 g/dL (32.4-36.7); MEAN CELL VOLUME 92.3 fL (81.5-99.8); MEAN PLATELET VOLUME 10.9 fL (8.7-11.7); PLATELET CLUMPS FLAG 10 (0-99); PLATELET COUNT 57 10^3/uL (150-400); RED BLOOD CELL COUNT 2.21 10^6/uL (4.40-6.38); RED CELL DISTRIBUTION WIDTH 15.6 % (11.5-15.2)
[2016-07-16 05:38] LABS: ADD SCAN? NO; LEFT SHIFT FLG 290 (0-99)
[2016-07-16 05:55] LABS: ALANINE AMINOTRANSFERASE 40 IU/L (21-72); ALBUMIN 2.1 g/dL (3.5-5.0); ALKALINE PHOSPHATASE 104 IU/L (38-126); ANION GAP 4 mEq/L (8-16); ASPARTATE AMINOTRANSFERASE 27 IU/L (17-59); BILIRUBIN,TOTAL 0.8 mg/dL (0.1-1.4); CALCIUM 7.4 mg/dL (8.5-10.4); CARBON DIOXIDE 25 mEq/l (22-31); CHLORIDE 110 mEq/L (97-110); CREATININE 0.6 mg/dL (0.7-1.3); GLOMERULAR FILTRATION RATE > 60; GLUCOSE 104 mg/dL (70-100); POTASSIUM 3.9 mEq/L (3.5-5.2); SODIUM 139 mEq/L (134-144); TOTAL PROTEIN 4.8 g/dL (6.3-8.2)
[2016-07-16 06:48] LABS: LARGE PLATELETS PRESENT; PLATELET ESTIMATE DECREASED (ADEQ)
[2016-07-16] MEDS: FLUCONAZOLE 100 MG TAB PO SCH (08:37)
[2016-07-16] MEDS: POTASSIUM Cl (KCl) 40 MEQ in NS 1,000 ML IV SCH ×2 (08:42→17:21)
--- NOTE | 2016-07-16 09:47 | SOAPPROG ---
CATIA Progress Note Assessment/Plan: Assessment: 1) AML (t9:11). Negative FLT3 / NPM1 s/p induction and 1 cycle HIDAC consolidation 2) Chemo induced anemia 3) Tevin-rectal abcess s/p debridement 07/15 Plan: Overall Castillo is doing better following surgical debridement yesterday. His neutropenia has resolved. He remains anemic, but minimally symptomatic, so will hold off on transfusion today. Continue IV abx. His next cycle of HIDAC will need to be delayed due to the abcess to allow for healing. Eventual plan for allo SCT. Patient's questions answered. 07/16/16 09:44 Subjective: Castillo underwent surgical debridement of a tevin-rectal abcess yesterday. Reports his pain is well controlled currently. Denies dypnea, Dizziness. Mother at bedside Objective: Vital Signs Temp Pulse Resp BP Pulse Ox 36.7 C 189 H 16 118/72 94 07/16/16 04:00 07/16/16 04:00 07/16/16 04:00 07/16/16 04:00 07/16/16 04:00 Microbiology 07/15/16 15:04 Gram Stain - Final Other - Tissue Laboratory Results 07/16/16 05:15 07/16/16 05:15 07/15/16 07/16/16 07/17/16 05:59 05:59 05:59 Intake Total 4095 4041 Output Total 30 Balance 4095 4011 PT 15.2 SEC (12.0-15.0) H 07/13/16 04:28 INR 1.20 (0.83-1.16) H 07/13/16 04:28 - Time Spent With Patient Time Spent With Patient: 25 minutes Physical Exam - Physical Exam General Appearance: alert, no apparent distress EENT: PERRL/EOMI Cardiac/Chest: regular rate, rhythm Rectal: other (Prirectal abcess Right sided, s/p drainage with bandage in place. Minimal tenderness) Neuro/Psych: normal mood/affect, oriented x 3 ICD10 Worksheet Patient Problems: Problems Problem Status Diagnosed AML (acute myelogenous leukemia) Acute Flu-like symptoms Acute Neutropenic fever Acute Pancytopenia due to antineoplastic chemotherapy Acute
--- NOTE | 2016-07-16 10:04 | SOAPPROG ---
SOAP Progress Note Assessment/Plan: Assessment/Plan - 36yo M c AML s/p I&D of necrotic perirectal skin - Doing well, WBC has rebounded and is WNL. Hb 7 but ASx - Site looks good, doesnt appear to have any new sites of necrosis. - Currently with W-D dressing, would like to place VAC likely tomorrow. Given location, placement will be difficult. - Cx and path sent: results pending 07/14/16 09:13 07/14/16 09:14 07/15/16 14:01 07/16/16 10:02 07/16/16 10:04 Subjective: Buttock pain, improved from previous Objective: Vital Signs Temp Pulse Resp BP Pulse Ox 36.7 C 189 H 16 118/72 94 07/16/16 04:00 07/16/16 04:00 07/16/16 04:00 07/16/16 04:00 07/16/16 04:00 Microbiology 07/15/16 15:04 Gram Stain - Final Other - Tissue Laboratory Results 07/16/16 05:15 07/16/16 05:15 07/15/16 07/16/16 07/17/16 05:59 05:59 05:59 Intake Total 4095 4041 Output Total 30 Balance 4095 4011 PT 15.2 SEC (12.0-15.0) H 07/13/16 04:28 INR 1.20 (0.83-1.16) H 07/13/16 04:28 ICD10 Worksheet Patient Problems: Problems Problem Status Diagnosed AML (acute myelogenous leukemia) Acute Flu-like symptoms Acute Neutropenic fever Acute Pancytopenia due to antineoplastic chemotherapy Acute
--- NOTE | 2016-07-16 11:48 | GOP ---
[f rep st] OPERATIVE REPORT DATE OF OPERATION: 07/15/2016 SURGEON: Bob Allen MD ANESTHESIA: General endotracheal. ANESTHESIOLOGIST: Flako Mancera MD PREOPERATIVE DIAGNOSIS: Perirectal abscess. POSTOPERATIVE DIAGNOSIS: Perirectal abscess. PROCEDURE PERFORMED: Examination under anesthesia with incision and drainage of necrotic perirectal skin 8 x 5 cm. FINDINGS: Necrotic tissue did extend laterally out to the left buttock and medially up to and includ ing the left lateral external hemorrhoidal column. SPECIMENS: Perirectal skin for culture and pathology. ESTIMATED BLOOD LOSS: 50 cc. DESCRIPTION OF PROCEDURE: The patient was greeted in the preoperative suite. Once again, risks, torie efits, and alternatives were discussed. Consent was signed. He was then brought back to the operati ve suite, placed on the OR table in a supine position. After all anesthesia machines, including SCDs , were on and functioning, a [employer] time-out was performed. General endotracheal anesthesia was then induced without incident and the patient was then placed into a low lithotomy pos ition with all pressure points appropriately padded and the perirectal area was prepped and draped in typical sterile fashion. I turned my attention toward removing the grossly necrotic portion of tiss ue that appeared to extend subcutaneously for some space laterally. I removed all necrotic tissue do wn to good, bleeding skin and good, bleeding fat underneath it. Hemostasis was achieved with gentle pressure and electrocautery. I removed all in all about an 8 x 5 cm piece of tissue. After I achiev ed hemostasis, I packed the wound with Betadine-soaked Kerlix, covered it with a sterile dressing. Lissette e was then extubated in the operative suite and taken to the PACU in satisfactory condition. DRAINS: None. COUNTS: All counts were reported as correct x2. /[id number]/MODL
--- NOTE | 2016-07-16 15:44 | HOSPPROG ---
Hospitalist Progress Note Assessment/Plan: This is a 36-year-old male with history of pancytopenia and AML presenting with : -esbl e coli bacteremia in the setting of perianal necrosis /abscess status post debridement - continue IV Zosyn for now. Will discuss transitioning to oral Bactrim upon discharge. -neutropenic fever (Resolved) -acute severe sepsis ( resolved) -pancytopenia due to leukemia and chemotherapy - white cell count now recovering nicely -aml receiving consolidation therapy, status post round two - anemia - continue to monitor Subjective: patient reports moderate rectal pain. He is tolerating a diet. Denies any fevers. He has not had a bowel movement. Objective: Vital Signs Temp Pulse Resp BP Pulse Ox 37.7 C 106 H 17 136/72 H 98 07/16/16 15:36 07/16/16 15:36 07/16/16 15:36 07/16/16 15:36 07/16/16 15:36 Microbiology 07/15/16 15:04 Mycobacterial Smear (VERA) - Final Other - Tissue 07/15/16 15:04 Gram Stain - Final Other - Tissue Laboratory Results 07/16/16 05:15 07/16/16 05:15 07/15/16 07/16/16 07/17/16 05:59 05:59 05:59 Intake Total 4095 4041 Output Total 30 Balance 4095 4011 PT 15.2 SEC (12.0-15.0) H 07/13/16 04:28 INR 1.20 (0.83-1.16) H 07/13/16 04:28 - Physical Exam Constitutional: no apparent distress, appears nourished, not in pain Ears, Nose, Mouth, Throat: moist mucous membranes, hearing normal, ears appear normal, no oral mucosal ulcers Cardiovascular: regular rate and rhythym, no murmur, rub, or gallop Respiratory: no respiratory distress, no rales or rhonchi, clear to auscultation Gastrointestinal: normoactive bowel sounds, soft, non-tender abdomen, no palpable masses ICD10 Worksheet Patient Problems: Problems Problem Status Diagnosed AML (acute myelogenous leukemia) Acute Flu-like symptoms Acute Neutropenic fever Acute Pancytopenia due to antineoplastic chemotherapy Acute
--- NOTE | 2016-07-16 18:57 | PCMIDPN ---
Assessment/Plan: Assessment/Plan: * Perirectal abscess status post debridement in the setting of neutropenia with recovered neutrophils with ESBL producing E coli bacteremia: Status postoperative debridement of perirectal abscess yesterday with operative findings noted. Continue Zosyn as patient with prior allergy to meropenem. Follow clinical exam over time. Do not think scrotal edema related to extension of infection to scrotal region. 07/16/16 18:53 Subjective: Patient complains of scrotal edema without tenderness. Status post incision and drainage of perirectal abscess yesterday with operative findings noted. Objective: Vital Signs Temp Pulse Resp BP Pulse Ox 37.7 C 106 H 17 136/72 H 98 07/16/16 15:36 07/16/16 15:36 07/16/16 15:36 07/16/16 15:36 07/16/16 15:36 Microbiology 07/15/16 15:04 Mycobacterial Smear (VERA) - Final Other - Tissue 07/15/16 15:04 Gram Stain - Final Other - Tissue Laboratory Results 07/16/16 05:15 07/16/16 05:15 07/15/16 07/16/16 07/17/16 05:59 05:59 05:59 Intake Total 4095 4041 2720 Output Total 30 Balance 4095 4011 2720 Zosyn # 3 Fluconazole # 6 Tm 38.6 Operative culture with growth of lactose fermenting gram-negative pepe - Physical Exam General Appearance: alert, no apparent distress EENT: pharynx normal, No scleral icterus Cardiac/Chest: regular rate, rhythm Abdomen: non-tender, No distended Male Genitalia: scrotal edema (Mild scrotal edema without tenderness or necrosis ) Rectal: perirectal area (Dressed postoperatively with mild induration along gluteal fold without erythema) ICD10 Worksheet Patient Problems: Problems Problem Status Diagnosed AML (acute myelogenous leukemia) Acute Flu-like symptoms Acute Neutropenic fever Acute Pancytopenia due to antineoplastic chemotherapy Acute
[2016-07-17] MEDS: PIPERACILLIN/TAZO 4.5 GM/DEX 100 ML IV SCH ×4 (00:01→18:26)
[2016-07-17] MEDS: POTASSIUM Cl (KCl) 40 MEQ in NS 1,000 ML IV SCH ×3 (02:24→21:46)
[2016-07-17 05:15] LABS: ABSOLUTE NRBC COUNT 0.02 10^3/uL (0-0.01); ADD DIFF? YES; ADD MORPH? YES; ATYPICAL LYMPHOCYTE FLAG 0 (0-99); FRAGMENT RBC FLAG 0 (0-99); HEMATOCRIT 20.4 % (40.0-51.0); LIPEMIA HEMOLYSIS FLAG 80 (0-99); MEAN CELL HEMOGLOBIN 31.2 pg (27.9-34.1); MEAN CELL HEMOGLOBIN CONCENTR. 33.3 g/dL (32.4-36.7); MEAN CELL VOLUME 93.6 fL (81.5-99.8); MEAN PLATELET VOLUME 10.8 fL (8.7-11.7); NRBC-AUTO% 0.2 % (0.0-0.2); PLATELET CLUMPS FLAG 20 (0-99); PLATELET COUNT 67 10^3/uL (150-400); RED BLOOD CELL COUNT 2.18 10^6/uL (4.40-6.38); RED CELL DISTRIBUTION WIDTH 15.5 % (11.5-15.2)
[2016-07-17 05:36] LABS: ADD SCAN? NO; HEMOGLOBIN 6.8 g/dL (13.7-17.5); LEFT SHIFT FLG 160 (0-99)
[2016-07-17 05:54] LABS: ANION GAP 3 mEq/L (8-16); CALCIUM 7.2 mg/dL (8.5-10.4); CARBON DIOXIDE 26 mEq/l (22-31); CHLORIDE 110 mEq/L (97-110); CREATININE 0.5 mg/dL (0.7-1.3); GLOMERULAR FILTRATION RATE > 60; GLUCOSE 93 mg/dL (70-100); SODIUM 139 mEq/L (134-144)
[2016-07-17 06:47] LABS: PLATELET ESTIMATE DECREASED (ADEQ)
[2016-07-17 06:50] LABS: LARGE PLATELETS PRESENT
[2016-07-17] MEDS: FLUCONAZOLE 100 MG TAB PO SCH (09:10)
--- NOTE | 2016-07-17 10:07 | PCMIDPN ---
Assessment/Plan: #Perirectal abscess/nec fasciitis : Some erythema induration remains on the left perineal lower buttocks region, but by report less painful to palpation. Large open wound around 4 to 6 o'clock position that is 7 to 5 cm approximately , no purulence -- continue Zosyn, discussed that there is some concern for evolving resistance to Zosyn with ESBL. Unfortunately only other options include aminoglycosides or Bactrim. Discussed bone marrow toxicity with Bactrim with patient. -- monitor clinical exam closely -- pathology pending # Neutropenic fever , T-max 37.7degrees, ANC 3220. Antibiotics as above # significant allergy to meropenem Microbiology 07/15/16 15:04 Other - Tissue Anaerobic Culture - Escherichia Coli Esbl 07/14/16 09:50 Blood Culture 1 set: No growth to date 07/10/16 20:30 Blood Culture 2 sets: Escherichia Coli Esbl patient examined with Dr. Allen medications Zosyn 4.5 g IV Q 6, # 3 fluconazole 100 mg daily Subjective: as expected pain in the perirectal area. No diarrhea, no rash, no shortness of breath Objective: Vital Signs Temp Pulse Resp BP Pulse Ox 36.9 C 85 18 124/70 H 98 07/17/16 08:00 07/17/16 08:00 07/17/16 08:00 07/17/16 08:00 07/17/16 08:00 Microbiology 07/15/16 15:04 Gram Stain - Final Other - Tissue 07/15/16 15:04 Mycobacterial Smear (VERA) - Final Other - Tissue Laboratory Results 07/17/16 05:00 07/17/16 05:00 07/16/16 07/17/16 07/18/16 05:59 05:59 05:59 Intake Total 4041 5638 Output Total 30 1 Balance 4011 5637 - Physical Exam General Appearance: alert, no apparent distress, obese EENT: pale conjunctiva, other ( no oral ulceration), No scleral icterus, No thrush Respiratory: lungs clear, No accessory muscle use Neck: supple Cardiac/Chest: regular rate, rhythm Extremities: pedal edema Abdomen: normal bowel sounds, non-tender, soft Male Genitalia: No delgado Rectal: perirectal area (erythema induration remains on the left perineal lower buttocks region, but by report less painful to palpation. Large open wound around 4 to 6 o'clock position that is 7 to 5 cm approximately, no purulence) Skin: warm/dry, pallor, No jaundice, No rash Neuro/Psych: alert, oriented x 3, depressed affect - Line/s RUE PICC Lines: No drainage, No erythema ICD10 Worksheet Patient Problems: Problems Problem Status Diagnosed AML (acute myelogenous leukemia) Acute Flu-like symptoms Acute Neutropenic fever Acute Pancytopenia due to antineoplastic chemotherapy Acute
[2016-07-17] MEDS: HYDROCODONE/APAP 5/325 TAB PO PRN ×2 (10:48→18:31)
--- NOTE | 2016-07-17 11:12 | SOAPPROG ---
SOAP Progress Note Assessment/Plan: Assessment/Plan - 36yo M c AML s/p I&D of necrotic perirectal skin - site looks clean, likely will not need further debridement. Wound care will be an issue given location, likely not candidate for VAC. L buttock indurated but clinically less painful, no apparent abscess at this time. - Wound care, abx, watchful waiting. Will need home care set up for dressing changes 07/14/16 09:13 07/14/16 09:14 07/15/16 14:01 07/16/16 10:02 07/16/16 10:04 07/17/16 11:11 Subjective: feels about the same. Objective: Vital Signs Temp Pulse Resp BP Pulse Ox 36.9 C 85 18 124/70 H 98 07/17/16 08:00 07/17/16 08:00 07/17/16 08:00 07/17/16 08:00 07/17/16 08:00 Microbiology 07/15/16 15:04 Gram Stain - Final Other - Tissue 07/15/16 15:04 Mycobacterial Smear (VERA) - Final Other - Tissue Laboratory Results 07/17/16 05:00 07/17/16 05:00 07/16/16 07/17/16 07/18/16 05:59 05:59 05:59 Intake Total 4041 5638 Output Total 30 1 Balance 4011 5637 PT 15.2 SEC (12.0-15.0) H 07/13/16 04:28 INR 1.20 (0.83-1.16) H 07/13/16 04:28 ICD10 Worksheet Patient Problems: Problems Problem Status Diagnosed AML (acute myelogenous leukemia) Acute Flu-like symptoms Acute Neutropenic fever Acute Pancytopenia due to antineoplastic chemotherapy Acute
--- NOTE | 2016-07-17 12:25 | SOAPPROG ---
SOAP Progress Note Assessment/Plan: Assessment: 1) AML (t9:11). Negative FLT3 / NPM1 s/p induction and 1 cycle HIDAC consolidation 2) Chemo induced anemia 3) Tevin-rectal abcess s/p debridement 07/15 Plan: Overall Castillo is doing better following surgical debridement. His neutropenia has resolved. He remains anemic. He is increasingly fatigued. I discussed the option of transfusion with him today. He would like PRBC transfusion. Risks/benefits reviewed. He tells me that signed a previous consent on 07/13/16. This is reviewed but is not cosigned, so I have cosigned it today after discussion with Castillo. Patient consents to transfusion. Continue IV abx. (Zosyn) His next cycle of HIDAC will need to be delayed due to the abscess to allow for healing. Eventual plan for allo SCT. Patient's questions answered. 07/16/16 09:44 07/17/16 12:22 07/17/16 12:25 07/17/16 12:26 Subjective: Still with tevin-rectal pain, though less severe. He is more fatigued today. Objective: Vital Signs Temp Pulse Resp BP Pulse Ox 36.8 C 94 18 124/62 H 98 07/17/16 12:05 07/17/16 12:05 07/17/16 12:05 07/17/16 12:05 07/17/16 12:05 Microbiology 07/15/16 15:04 Gram Stain - Final Other - Tissue 07/15/16 15:04 Mycobacterial Smear (VERA) - Final Other - Tissue Laboratory Results 07/17/16 05:00 07/17/16 05:00 07/16/16 07/17/16 07/18/16 05:59 05:59 05:59 Intake Total 4041 5638 Output Total 30 1 Balance 4011 5637 PT 15.2 SEC (12.0-15.0) H 07/13/16 04:28 INR 1.20 (0.83-1.16) H 07/13/16 04:28 - Time Spent With Patient Time Spent With Patient: 25 minutes Physical Exam - Physical Exam General Appearance: alert, no apparent distress Respiratory: lungs clear Cardiac/Chest: regular rate, rhythm Abdomen: non-tender, soft Neuro/Psych: oriented x 3 ICD10 Worksheet Patient Problems: Problems Problem Status Diagnosed AML (acute myelogenous leukemia) Acute Flu-like symptoms Acute Neutropenic fever Acute Pancytopenia due to antineoplastic chemotherapy Acute
--- NOTE | 2016-07-17 15:29 | HOSPPROG ---
Hospitalist Progress Note Assessment/Plan: Dr. Allen has agreed to be the attending of record for Mr. Almanza please call the hospitalist service with further questions Objective: Vital Signs Temp Pulse Resp BP Pulse Ox 36.8 C 94 18 124/62 H 98 07/17/16 12:05 07/17/16 12:05 07/17/16 12:05 07/17/16 12:05 07/17/16 12:05 Microbiology 07/15/16 15:04 Gram Stain - Final Other - Tissue 07/15/16 15:04 Mycobacterial Smear (VERA) - Final Other - Tissue Laboratory Results 07/17/16 05:00 07/17/16 05:00 07/16/16 07/17/16 07/18/16 05:59 05:59 05:59 Intake Total 4041 5638 Output Total 30 1 Balance 4011 5637 PT 15.2 SEC (12.0-15.0) H 07/13/16 04:28 INR 1.20 (0.83-1.16) H 07/13/16 04:28 not seen today ICD10 Worksheet Patient Problems: Problems Problem Status Diagnosed AML (acute myelogenous leukemia) Acute Flu-like symptoms Acute Neutropenic fever Acute Pancytopenia due to antineoplastic chemotherapy Acute
[2016-07-18] MEDS: PIPERACILLIN/TAZO 4.5 GM/DEX 100 ML IV SCH ×5 (00:05→23:48)
[2016-07-18] MEDS: oxyCODONE IR 5 MG TAB PO PRN ×2 (04:15→09:08)
[2016-07-18] MEDS: FLUCONAZOLE 100 MG TAB PO SCH (09:08)
--- NOTE | 2016-07-18 09:41 | SOAPPROG ---
SOAP Progress Note Assessment/Plan: Assessment/Plan: 36 Y M c AML s/p I&D of necrotic perirectal region. +erythema and induration tracking anteriorly from wound. Viewed with ID who thinks the area is less tender and maybe very minimally improved. This is my first day viewing his wound. Will have surgical MD examine today. I'm concerned that he may need further OR debridement. NPO for now. 07/18/16 09:39 Objective: Vital Signs Temp Pulse Resp BP Pulse Ox 36.6 C 81 16 140/82 H 98 07/18/16 08:26 07/18/16 08:26 07/18/16 08:26 07/18/16 08:26 07/18/16 08:26 Microbiology 07/15/16 15:04 Mycobacterial Smear (VERA) - Final Other - Tissue 07/15/16 15:04 Gram Stain - Final Other - Tissue Laboratory Results 07/17/16 05:00 07/17/16 05:00 07/17/16 07/18/16 07/19/16 05:59 05:59 05:59 Intake Total 5638 4058 Output Total 1 Balance 5637 4058 PT 15.2 SEC (12.0-15.0) H 07/13/16 04:28 INR 1.20 (0.83-1.16) H 07/13/16 04:28 ICD10 Worksheet Patient Problems: Problems Problem Status Diagnosed AML (acute myelogenous leukemia) Acute ESBL (extended spectrum beta-lactamase) producing bacteria infection Acute 07/15 Flu-like symptoms Acute Neutropenic fever Acute Pancytopenia due to antineoplastic chemotherapy Acute
--- NOTE | 2016-07-18 09:43 | PCMIDPN ---
Assessment/Plan: #ESBL E Coli Perirectal abscess/nec fasciitis : Some erythema induration remains on the left perineal lower buttocks region, but slightly improved. Large open wound around 4 to 6 o'clock position that is 7 to 5 cm approximately , no purulence - very painful to exam, more than yesterday. Fever curve improved. Overall will characterize as slight improvement, but still concern regarding need for surgical intervention vs. failure of Zosyn with ESBL. --reviewed risks and benefits of aminoglycosides (renal and ototoxicity) and bactrim (renal , bone marrow toxicity) in case needed in the future. Hold off on antibiotic changes for now and will discuss with partners which risks are best to undertake if additional antibiotic is needed. No urgency to antibiotic changes as patient's ANC has recovered --continue on zosyn alone and await Dr. Brady salas of surgical site. # ESBL E coli bacteremia, blood cx cleared 07/14 # Neutropenic fever , T-max 36.9 degrees, ANC 5800. Resolved # significant allergy to meropenem Microbiology 07/15/16 15:04 Other - Tissue Anaerobic Culture - Escherichia Coli Esbl 07/14/16 09:50 Blood Culture 1 set: No growth to date 07/10/16 20:30 Blood Culture 2 sets: Escherichia Coli Esbl medications Zosyn 4.5 g IV Q 6, # 5 fluconazole 100 mg daily patient examined with Carmen Santana Subjective: Patient without specific complaints this morning. No BM for several days Denies rash, shortness of breath Objective: Vital Signs Temp Pulse Resp BP Pulse Ox 36.6 C 81 16 140/82 H 98 07/18/16 08:26 07/18/16 08:26 07/18/16 08:26 07/18/16 08:26 07/18/16 08:26 Microbiology 07/15/16 15:04 Mycobacterial Smear (VERA) - Final Other - Tissue 07/15/16 15:04 Gram Stain - Final Other - Tissue Laboratory Results 07/17/16 05:00 07/17/16 05:00 07/17/16 07/18/16 07/19/16 05:59 05:59 05:59 Intake Total 5638 4058 Output Total 1 Balance 5637 4058 - Physical Exam General Appearance: alert, no apparent distress, obese EENT: pale conjunctiva, No thrush Respiratory: lungs clear Neck: supple Cardiac/Chest: regular rate, rhythm Extremities: pedal edema Abdomen: normal bowel sounds, non-tender, soft, No distended Male Genitalia: No delgado Rectal: perirectal area (Large 7 cm open wound right medial buttock adjacent to perirectal area approximately 4 to 6 o'clock position. Wound very painful to palpation. Right lower buttocks and adjacent perineal area indurated with erythema. Perineum is particularly painful to palpation.) Skin: pallor, No rash Neuro/Psych: alert, normal mood/affect, oriented x 3 - Line/s RUE PICC Lines: No drainage, No erythema - Time Spent With Patient Time Spent with Patient: greater than 35 minutes (Antibiotic toxicities and potential need for surgery reviewed with patient and his mother at bedside) Time Spent with Patient: Greater than 35 minutes spent on this patients care, greater than 50% of time spent counseling, educating, and coordinating care regarding the above mentioned plan. ICD10 Worksheet Patient Problems: Problems Problem Status Diagnosed AML (acute myelogenous leukemia) Acute ESBL (extended spectrum beta-lactamase) producing bacteria infection Acute 07/15 Flu-like symptoms Acute Neutropenic fever Acute Pancytopenia due to antineoplastic chemotherapy Acute
--- NOTE | 2016-07-18 13:54 | SOAPPROG ---
[facility] Progress Note Assessment/Plan: Assessment: 1) AML (t9:11). Negative FLT3 / NPM1 s/p induction and 1 cycle HIDAC consolidation 2) Chemo induced anemia 3) Starla-rectal abcess s/p debridement 07/15 Plan: Castillo will be re-evaluated by surgery today, and may require repeat OR debridement. If this is not needed, he will likely be switched to Bactrim and Gentamycin by ID. He is non neutropenic. He received 1 unit PRBC's yesterday. I will order a repeat CBC today to assess response. Patient's questions answered. Subjective: Awaiting Surgical evaluation for possible return to OR for additional debridement Objective: Vital Signs Temp Pulse Resp BP Pulse Ox 36.6 C 81 16 144/78 H 98 07/18/16 11:59 07/18/16 11:59 07/18/16 11:59 07/18/16 11:59 07/18/16 11:59 Microbiology 07/15/16 15:04 Gram Stain - Final Other - Tissue 07/15/16 15:04 Mycobacterial Smear (VERA) - Final Other - Tissue Laboratory Results 07/17/16 05:00 07/17/16 05:00 07/17/16 07/18/16 07/19/16 05:59 05:59 05:59 Intake Total 5638 4058 Output Total 1 Balance 5637 4058 PT 15.2 SEC (12.0-15.0) H 07/13/16 04:28 INR 1.20 (0.83-1.16) H 07/13/16 04:28 - Time Spent With Patient Time Spent With Patient: 20 minutes ICD10 Worksheet Patient Problems: Problems Problem Status Diagnosed AML (acute myelogenous leukemia) Acute ESBL (extended spectrum beta-lactamase) producing bacteria infection Acute 07/15 Flu-like symptoms Acute Neutropenic fever Acute Pancytopenia due to antineoplastic chemotherapy Acute
[2016-07-18 14:34] LABS: ABSOLUTE NRBC COUNT 0.08 10^3/uL (0-0.01); ADD DIFF? YES; ADD MORPH? NO; ATYPICAL LYMPHOCYTE FLAG 20 (0-99); FRAGMENT RBC FLAG 0 (0-99); HEMATOCRIT 24.4 % (40.0-51.0); HEMOGLOBIN 8.2 g/dL (13.7-17.5); LIPEMIA HEMOLYSIS FLAG 80 (0-99); MEAN CELL HEMOGLOBIN 31.3 pg (27.9-34.1); MEAN CELL HEMOGLOBIN CONCENTR. 33.6 g/dL (32.4-36.7); MEAN CELL VOLUME 93.1 fL (81.5-99.8); MEAN PLATELET VOLUME 11.1 fL (8.7-11.7); NRBC-AUTO% 0.9 % (0.0-0.2); PLATELET CLUMPS FLAG 0 (0-99); PLATELET COUNT 96 10^3/uL (150-400); RED BLOOD CELL COUNT 2.62 10^6/uL (4.40-6.38); RED CELL DISTRIBUTION WIDTH 15.1 % (11.5-15.2)
[2016-07-18 14:44] LABS: ADD SCAN? NO; LEFT SHIFT FLG 170 (0-99)
[2016-07-18 15:21] LABS: LARGE PLATELETS PRESENT; PLATELET ESTIMATE DECREASED (ADEQ)
[2016-07-18] MEDS: POTASSIUM Cl (KCl) 40 MEQ in NS 1,000 ML IV SCH (17:03)
[2016-07-18] MEDS: ONDANSETRON DISINTEGRATING 4 MG TAB PO PRN (17:03)
[2016-07-19] MEDS: PIPERACILLIN/TAZO 4.5 GM/DEX 100 ML IV SCH ×3 (06:29→18:06)
[2016-07-19] MEDS: FLUCONAZOLE 100 MG TAB PO SCH (07:57)
--- NOTE | 2016-07-19 09:51 | SOAPPROG ---
SOAP Progress Note Assessment/Plan: Assessment/Plan - 36yo M c AML s/p I&D of necrotic perirectal skin - L buttock cellulitis has essentially resolved - wound bed looks a little soupy, and is tender. Edges look ok but difficult to examine given tenderness. Will plan for OR, EUA today. May not need to debride anything but will given opportunity to assess wound and debride as necessary 07/14/16 09:13 07/14/16 09:14 07/15/16 14:01 07/16/16 10:02 07/16/16 10:04 07/17/16 11:11 07/19/16 09:49 Subjective: Pain improved Objective: Vital Signs Temp Pulse Resp BP Pulse Ox 37.0 C 72 18 138/70 H 92 07/19/16 08:55 07/19/16 08:55 07/19/16 08:55 07/19/16 08:55 07/19/16 08:55 Microbiology 07/15/16 15:04 Gram Stain - Final Other - Tissue Laboratory Results 07/18/16 14:17 07/17/16 05:00 07/18/16 07/19/16 07/20/16 05:59 05:59 05:59 Intake Total 4058 4235 Output Total 100 Balance 4058 4135 PT 15.2 SEC (12.0-15.0) H 07/13/16 04:28 INR 1.20 (0.83-1.16) H 07/13/16 04:28 ICD10 Worksheet Patient Problems: Problems Problem Status Diagnosed AML (acute myelogenous leukemia) Acute ESBL (extended spectrum beta-lactamase) producing bacteria infection Acute 07/15 Flu-like symptoms Acute Neutropenic fever Acute Pancytopenia due to antineoplastic chemotherapy Acute
--- NOTE | 2016-07-19 10:07 | PCMIDPN ---
Assessment/Plan: #ESBL E Coli Perirectal abscess/nec fasciitis : Some erythema induration remains on the left perineal lower buttocks region, but slightly improved. Large open wound around 4 to 6 o'clock position that is 7 to 5 cm approximately , some purulence seen today, wound still very tender, enduration/erythema on R buttock a bit better. --Back to OR today for exploration and will repeat tissue culture to eval for evolving bacterial resistance --continue high-dose Zosyn for ESBL E coli. If evolving resistance demonstrated will likely add Bactrim, discussed with patient and mother # ESBL E coli bacteremia, blood cx cleared 07/14 # Neutropenic fever , T-max 37 degrees, ANC 5400. Resolved # significant allergy to meropenem Microbiology 07/15/16 15:04 Other - Tissue Anaerobic Culture - Escherichia Coli Esbl 07/14/16 09:50 Blood Culture 1 set: No growth to date 07/10/16 20:30 Blood Culture 2 sets: Escherichia Coli Esbl medications Zosyn 4.5 g IV Q 6, # 6 fluconazole 100 mg daily Subjective: Feeling edematous after IV fluids yesterday Had small bowel movement yesterday Denies rash or oral pain Objective: Vital Signs Temp Pulse Resp BP Pulse Ox 37.0 C 72 18 138/70 H 92 07/19/16 08:55 07/19/16 08:55 07/19/16 08:55 07/19/16 08:55 07/19/16 08:55 Microbiology 07/15/16 15:04 Gram Stain - Final Other - Tissue Laboratory Results 07/18/16 14:17 07/17/16 05:00 07/18/16 07/19/16 07/20/16 05:59 05:59 05:59 Intake Total 4058 4235 Output Total 100 Balance 4058 4135 General Appearance: alert, no apparent distress, obese EENT: pale conjunctiva, no oral ulceration, No scleral icterus, No thrush no ulceration Respiratory: lungs clear, No accessory muscle use Neck: supple Cardiac/Chest: regular rate, rhythm Extremities: pedal edema Abdomen: normal bowel sounds, non-tender, soft Male Genitalia: No delgado perirectal area : Decreased erythema, induration R perineal lower buttocks region, Large open wound around 4 to 6 o'clock position that is 7 to 5 cm approximately, +purulence, and significant tenderness to palpation Skin: warm/dry, pallor, No jaundice, No rash Neuro/Psych: alert, oriented x 3, depressed affect PICC right upper extremity C/D/I - Time Spent With Patient Time Spent with Patient: greater than 35 minutes (reviewed risks and benefits of aminoglycosides (renal and ototoxicity) and bactrim (renal , bone marrow toxicity) in case needed in the future; coordination of care with surgery) Time Spent with Patient: Greater than 35 minutes spent on this patients care, greater than 50% of time spent counseling, educating, and coordinating care regarding the above mentioned plan. ICD10 Worksheet Patient Problems: Problems Problem Status Diagnosed AML (acute myelogenous leukemia) Acute ESBL (extended spectrum beta-lactamase) producing bacteria infection Acute 07/15 Flu-like symptoms Acute Neutropenic fever Acute Pancytopenia due to antineoplastic chemotherapy Acute
[2016-07-19] MEDS ORDERED: oxyCODONE IR 5 MG TAB PO PRN (11:10)
[2016-07-19] MEDS ORDERED: HYDROCODONE/APAP 5/325 TAB PO PRN (11:10)
[2016-07-19] MEDS ORDERED: BUPIVACAINE/EPI 0.5% 30 ML SDV ONE (12:56)
[2016-07-19] MEDS ORDERED: fentaNYL 100 MCG/2 ML INJ ONE (13:03)
[2016-07-19] MEDS ORDERED: PROPOFOL 200 MG/20 ML VIAL ONE ×2 (13:04)
[2016-07-19] MEDS ORDERED: LIDOCAINE 2% 100 MG/5 ML SYR IVP ONE (13:06)
[2016-07-19] MEDS ORDERED: MIDAZOLAM 2 MG/2 ML VIAL ONE (13:06)
[2016-07-19] MEDS ORDERED: BUPIVACAINE 0.5% 30 ML SDV ONE (13:38)
[2016-07-19] MEDS ORDERED: BACITRACIN 50,000 UNITS/10 ML SYR IRR ONE (13:38)
[2016-07-19] MEDS ORDERED: HYDROmorphONE/DILAUDID 2 MG/ML SYR ONE (13:49)
[2016-07-19] MEDS ORDERED: ONDANSETRON 4 MG/2 ML VIAL ONE (13:52)
[2016-07-19] MEDS ORDERED: DEXAMETHASONE 4 MG/ML VIAL ONE (13:52)
--- NOTE | 2016-07-19 14:35 | POSTOPPROG ---
Post Op Note Date of Operation: 07/19/16 Surgeon: Bob Allen Anesthesiologist: Janice Anesthesia: LMA Pre-op Diagnosis: perirectal necrosis Post-op Diagnosis: same Procedure: EUA, Inciison and drainage of perirectal wound Findings: small areas of residual necrosis removed. Inf/Abcess present in the surg proc area at time of surgery?: Yes Depth: Deep Incisional (Fascial) EBL: Minimal Specimen(s): Tissue for culture
--- NOTE | 2016-07-19 15:07 | GOP ---
[f rep st] OPERATIVE REPORT DATE OF OPERATION: 07/19/2016 SURGEON: Bob Allen MD MOBILE NURSE: None. ANESTHESIA: General endotracheal. ANESTHESIOLOGIST: Dr. Camacho PREOPERATIVE DIAGNOSIS: Perirectal abscess. POSTOPERATIVE DIAGNOSIS: Perirectal abscess. PROCEDURE PERFORMED: Examination under anesthesia with debridement of necrotic perirectal tissue surendra suring 8 x 6 cm. FINDINGS: Two areas less than a cm of necrosis towards the anus and distally, both debrided back to good, bleeding tissue. SPECIMENS: Tissue taken for culture. DESCRIPTION OF PROCEDURE: The patient was greeted in the preoperative suite. Once again, risks, torie efits, and alternatives were discussed. The consent was then signed. He was then brought back to [facility] operative suite, placed on the OR table in the supine position. After all anesthesia machines were on and functioning, a [employer] timeout was performed. Antibiotics were given on-ca ll to the operating room. General endotracheal anesthesia was then induced without incident. The pa tient was then placed in low lithotomy position using candy-cane stirrups with all pressure points ap propriately padded. Perirectal area was then appropriately prepped and draped in a typical sterile f ashion. After successfully draping, I performed my examination. It appeared that there were 2 small areas wi th some residual necrotic tissue. Using electrocautery, I debrided these. Once successfully debride d, I obtained hemostasis with electrocautery and gentle pressure. I then used a pulse lavage with ba citracin saline and irrigated the entire area with 3 L normal saline. I injected Marcaine in the are a to help provide a field block. I assessed for hemostasis, which was noted to be good. I then plac ed wet Kerlix and an ABD into the area. The patient was then extubated in the operative suite and taken to the PACU in satisfactory condition . DRAINS: None. /[id number]/MODL
--- NOTE | 2016-07-19 15:49 | SOAPPROG ---
SOAP Progress Note Assessment/Plan: Assessment: 1) AML (t9:11). Negative FLT3 / NPM1 s/p induction and 1 cycle HIDAC consolidation 2) Chemo induced anemia 3) Starla-rectal abscess s/p debridement 07/15 Plan: Castillo went back to the OR today for repeat I&D. He had a nerve block done at that time which has significantly helped with his pain. He will continue on Zosyn. He had a good response to PRBC's. I ordered a repeat CBC for tomorrow. Blood bank has his HLA typing kit. This will be done today. His questions were answered. 07/19/16 15:46 Subjective: Went to OR for repeat I&D Objective: Vital Signs Temp Pulse Resp BP Pulse Ox 36.6 C 75 15 147/81 H 92 07/19/16 15:14 07/19/16 15:14 07/19/16 15:14 07/19/16 15:14 07/19/16 15:14 Microbiology 07/19/16 13:44 Gram Stain - Final Other - Tissue 07/14/16 09:50 Blood Culture - Final Blood 07/15/16 15:04 Gram Stain - Final Other - Tissue Laboratory Results 07/18/16 14:17 07/17/16 05:00 07/18/16 07/19/16 07/20/16 05:59 05:59 05:59 Intake Total 4058 4235 Output Total 100 Balance 4058 4135 PT 15.2 SEC (12.0-15.0) H 07/13/16 04:28 INR 1.20 (0.83-1.16) H 07/13/16 04:28 - Time Spent With Patient Time Spent With Patient: 20 MINUTES Physical Exam - Physical Exam General Appearance: alert, no apparent distress Neuro/Psych: alert, normal mood/affect ICD10 Worksheet Patient Problems: Problems Problem Status Diagnosed AML (acute myelogenous leukemia) Acute ESBL (extended spectrum beta-lactamase) producing bacteria infection Acute 07/15 Flu-like symptoms Acute Neutropenic fever Acute Pancytopenia due to antineoplastic chemotherapy Acute
[2016-07-20] MEDS: PIPERACILLIN/TAZO 4.5 GM/DEX 100 ML IV SCH ×5 (00:03→23:58)
[2016-07-20] MEDS: POTASSIUM Cl (KCl) 40 MEQ in NS 1,000 ML IV SCH (02:53)
[2016-07-20 05:44] LABS: ABSOLUTE NRBC COUNT 0.14 10^3/uL (0-0.01); ADD DIFF? YES; ATYPICAL LYMPHOCYTE FLAG 10 (0-99); FRAGMENT RBC FLAG 0 (0-99); HEMATOCRIT 27.1 % (40.0-51.0); HEMOGLOBIN 9.2 g/dL (13.7-17.5); LIPEMIA HEMOLYSIS FLAG 90 (0-99); MEAN CELL HEMOGLOBIN 31.7 pg (27.9-34.1); MEAN CELL HEMOGLOBIN CONCENTR. 33.9 g/dL (32.4-36.7); MEAN CELL VOLUME 93.4 fL (81.5-99.8); MEAN PLATELET VOLUME 10.8 fL (8.7-11.7); PLATELET CLUMPS FLAG 0 (0-99); PLATELET COUNT 184 10^3/uL (150-400); RED CELL DISTRIBUTION WIDTH 14.2 % (11.5-15.2)
[2016-07-20 05:58] LABS: ADD MORPH? NO; ADD SCAN? NO; LEFT SHIFT FLG 110 (0-99); NRBC-AUTO% 1.3 % (0.0-0.2)
[2016-07-20 06:26] LABS: PLATELET ESTIMATE ADEQUATE (ADEQ)
[2016-07-20 06:27] LABS: POLYCHROMASIA 1+
--- NOTE | 2016-07-20 09:03 | SOAPPROG ---
SOAP Progress Note Assessment/Plan: Assessment/Plan - 36yo M c AML s/p I&D of necrotic perirectal skin - took back to OR yesterday, did debride some additional suspicious areas and sent repeat cultures - Site looks good today, no purulence, no necrotic tissue. Appropriately tender. - I have spoken with Jeanie of wound care to assist with management and to lend expertise in caring for his wound - Would plan to monitor for at least another day to make sure doesnt need addl debridement and Abx are working, would be ok with d/c once that is apparent. Will talk with CM today for home RN and will also get patient established with the wound care clinic. 07/14/16 09:13 07/14/16 09:14 07/15/16 14:01 07/16/16 10:02 07/16/16 10:04 07/17/16 11:11 07/19/16 09:49 07/20/16 09:00 Subjective: Feeling better, also appears to be in better spirits as well Objective: Vital Signs Temp Pulse Resp BP Pulse Ox 36.6 C 83 18 128/79 H 90 L 07/20/16 08:15 07/20/16 08:15 07/20/16 08:15 07/20/16 08:15 07/20/16 08:15 Microbiology 07/19/16 13:44 Gram Stain - Final Other - Tissue 07/14/16 09:50 Blood Culture - Final Blood 07/15/16 15:04 Gram Stain - Final Other - Tissue Laboratory Results 07/20/16 05:40 07/17/16 05:00 07/19/16 07/20/16 07/21/16 05:59 05:59 05:59 Intake Total 4235 2150 Output Total 100 Balance 4135 2150 PT 15.2 SEC (12.0-15.0) H 07/13/16 04:28 INR 1.20 (0.83-1.16) H 07/13/16 04:28 ICD10 Worksheet Patient Problems: Problems Problem Status Diagnosed AML (acute myelogenous leukemia) Acute ESBL (extended spectrum beta-lactamase) producing bacteria infection Acute 07/15 Flu-like symptoms Acute Neutropenic fever Acute Pancytopenia due to antineoplastic chemotherapy Acute
[2016-07-20] MEDS: FLUCONAZOLE 100 MG TAB PO SCH (09:30)
--- NOTE | 2016-07-20 14:37 | SOAPPROG ---
SOAP Progress Note Assessment/Plan: Assessment: 1) AML (t9:11). Negative FLT3 / NPM1 s/p induction and 1 cycle HIDAC consolidation 2) Chemo induced anemia 3) Starla-rectal abscess s/p debridement 07/15 4) ESBL E. coli bacteremia (on Zosyn) Plan: Castillo went back to the OR on for repeat I&D. He had a nerve block done at that time which has significantly helped with his pain. He will continue on Zosyn for now. Per general surgery note, the wound appears much better. If he could be switched to oral ABX, he could potentially go home over the weekend. No transfusion support today. HLA typing done yesterday. His next dose of HiDAC will be delayed until his wound has had time to heal. His questions were answered. 07/19/16 15:46 07/20/16 14:34 07/20/16 14:34 Subjective: Pain much better. Patient's mother in room. Objective: Vital Signs Temp Pulse Resp BP Pulse Ox 36.6 C 96 16 128/68 H 98 07/20/16 12:54 07/20/16 12:54 07/20/16 12:54 07/20/16 12:54 07/20/16 12:54 Microbiology 07/15/16 15:04 Gram Stain - Final Other - Tissue 07/19/16 13:44 Gram Stain - Final Other - Tissue 07/14/16 09:50 Blood Culture - Final Blood Laboratory Results 07/20/16 05:40 07/17/16 05:00 07/19/16 07/20/16 07/21/16 05:59 05:59 05:59 Intake Total 4235 2150 Output Total 100 Balance 4135 2150 PT 15.2 SEC (12.0-15.0) H 07/13/16 04:28 INR 1.20 (0.83-1.16) H 07/13/16 04:28 - Time Spent With Patient Time Spent With Patient: 25 minutes Physical Exam - Physical Exam General Appearance: alert, no apparent distress EENT: PERRL/EOMI Skin: normal color Neuro/Psych: alert, normal mood/affect ICD10 Worksheet Patient Problems: Problems Problem Status Diagnosed AML (acute myelogenous leukemia) Acute ESBL (extended spectrum beta-lactamase) producing bacteria infection Acute 07/15 Flu-like symptoms Acute Neutropenic fever Acute Pancytopenia due to antineoplastic chemotherapy Acute
--- NOTE | 2016-07-20 17:00 | PCMIDPN ---
Assessment/Plan: Assessment: Neutropenic fever initially. Perirectal abscess develops during the time of neutropenia. Pathogen is an ESBL E coli. Patient is stable on Zosyn. Will continue this given the sensitivity panel. Clinically he appears to be improving. Plan: 1. Continue Zosyn. 2. Follow clinical appearance of perirectal area. 07/12/16 09:55 07/20/16 17:20 07/20/16 17:21 Subjective: Patient is resting. Did not awaken. No new events per RN. Objective: Zosyn # 7 Vital Signs Temp Pulse Resp BP Pulse Ox 36.6 C 70 18 146/80 H 98 07/20/16 16:30 07/20/16 16:30 07/20/16 16:30 07/20/16 16:30 07/20/16 16:30 Microbiology 07/15/16 15:04 Gram Stain - Final Other - Tissue 07/19/16 13:44 Gram Stain - Final Other - Tissue 07/14/16 09:50 Blood Culture - Final Blood Laboratory Results 07/20/16 05:40 07/17/16 05:00 07/19/16 07/20/16 07/21/16 05:59 05:59 05:59 Intake Total 4235 2150 750 Output Total 100 Balance 4135 2150 750 - Physical Exam General Appearance: WD/WN, no apparent distress Skin: normal color, warm/dry, No rash ICD10 Worksheet Patient Problems: Problems Problem Status Diagnosed AML (acute myelogenous leukemia) Acute ESBL (extended spectrum beta-lactamase) producing bacteria infection Acute 07/15 Flu-like symptoms Acute Neutropenic fever Acute Pancytopenia due to antineoplastic chemotherapy Acute
[2016-07-21] MEDS: PIPERACILLIN/TAZO 4.5 GM/DEX 100 ML IV SCH ×3 (06:07→18:04)
--- NOTE | 2016-07-21 11:19 | PCMIDPN ---
Assessment/Plan: Assessment: Neutropenic fever initially. Perirectal abscess develops during the time of neutropenia. Pathogen is an ESBL E coli. Patient is stable on Zosyn. Culture from last operating room visit with mixed intestinal jared. No predominant organism. Plan to continue the Zosyn currently. There may be a potential to change to oral Bactrim upon discharge. Will discuss with surgery. Plan: 1. Continue Zosyn. 2. Follow clinical appearance of perirectal area. Subjective: Patient is feeling fairly well. Still unable to sit secondary to perirectal tenderness. No fevers or chills. Generally nontoxic. Objective: Zosyn # 8 Vital Signs Temp Pulse Resp BP Pulse Ox 36.7 C 70 18 138/78 H 98 07/21/16 07:28 07/21/16 07:28 07/21/16 07:28 07/21/16 07:28 07/21/16 07:28 Microbiology 07/19/16 13:44 Gram Stain - Final Other - Tissue 07/15/16 15:04 Gram Stain - Final Other - Tissue Laboratory Results 07/20/16 05:40 07/17/16 05:00 07/20/16 07/21/16 07/22/16 05:59 05:59 05:59 Intake Total 2150 1200 Balance 2150 1200 - Physical Exam General Appearance: WD/WN, alert, no apparent distress, non-toxic Respiratory: lungs clear, normal breath sounds Cardiac/Chest: regular rate, rhythm, No tachycardia Skin: normal color, warm/dry, No rash Neuro/Psych: alert, normal mood/affect, oriented x 3 ICD10 Worksheet Patient Problems: Problems Problem Status Diagnosed AML (acute myelogenous leukemia) Acute ESBL (extended spectrum beta-lactamase) producing bacteria infection Acute 07/15 Flu-like symptoms Acute Neutropenic fever Acute Pancytopenia due to antineoplastic chemotherapy Acute
[2016-07-21] MEDS: FLUCONAZOLE 100 MG TAB PO SCH (12:23)
--- NOTE | 2016-07-21 13:28 | SOAPPROG ---
SOAP Progress Note Assessment/Plan: 07/21/16 13:26Assessment/Plan: Assessment: 1) AML (t9:11). Negative FLT3 / NPM1 s/p induction and 1 cycle HIDAC consolidation 2) Chemo induced anemia 3) Starla-rectal abscess s/p debridement 07/15 and 07/19. 4) ESBL E. coli bacteremia (on Zosyn) Patient is sleeping. I spoke to his mother. He continues on Zosyn. May be switching to oral antibiotics soon. He needs follow up with Dr. Galindo this week. I will notify Dr. Galindo. Next consolidation will be delayed pending recovery from the abcess. No indication for transfusions at this time. 07/21/16 13:28 Subjective: sleeping Objective: Vital Signs Temp Pulse Resp BP Pulse Ox 36.6 C 71 19 135/86 H 89 L 07/21/16 11:56 07/21/16 11:56 07/21/16 11:56 07/21/16 11:56 07/21/16 11:56 Microbiology 07/19/16 13:44 Gram Stain - Final Other - Tissue 07/15/16 15:04 Gram Stain - Final Other - Tissue Laboratory Results 07/20/16 05:40 07/17/16 05:00 07/20/16 07/21/16 07/22/16 05:59 05:59 05:59 Intake Total 2150 1200 Balance 2150 1200 PT 15.2 SEC (12.0-15.0) H 07/13/16 04:28 INR 1.20 (0.83-1.16) H 07/13/16 04:28 Physical Exam - Physical Exam General Appearance: WD/WN (patient sleeping not examined. Discussed issues with his mother.) ICD10 Worksheet Patient Problems: Problems Problem Status Diagnosed AML (acute myelogenous leukemia) Acute ESBL (extended spectrum beta-lactamase) producing bacteria infection Acute 07/15 Flu-like symptoms Acute Neutropenic fever Acute Pancytopenia due to antineoplastic chemotherapy Acute
[2016-07-21 19:35] VITALS: RESP 16
[2016-07-22] MEDS: PIPERACILLIN/TAZO 4.5 GM/DEX 100 ML IV SCH ×4 (00:03→17:54)
[2016-07-22] MEDS: FLUCONAZOLE 100 MG TAB PO SCH (09:26)
--- NOTE | 2016-07-22 09:42 | SOAPPROG ---
SOAP Progress Note Assessment/Plan: Assessment: SEEN YESTERDAY AND TODAY. DOING WELL. AFEBRILE. WBC IMPROVED. WOUND IS GRANULATING NICELY Plan: CONTINUED DRESSING CHANGES 07/22/16 09:41 Objective: Vital Signs Temp Pulse Resp BP Pulse Ox 36.6 C 72 16 133/79 H 96 07/22/16 08:00 07/22/16 08:00 07/22/16 08:00 07/22/16 08:00 07/22/16 08:00 Microbiology 07/19/16 13:44 Gram Stain - Final Other - Tissue 07/15/16 15:04 Gram Stain - Final Other - Tissue Laboratory Results 07/20/16 05:40 07/17/16 05:00 07/21/16 07/22/16 07/23/16 05:59 05:59 05:59 Intake Total 1200 660 Balance 1200 660 PT 15.2 SEC (12.0-15.0) H 07/13/16 04:28 INR 1.20 (0.83-1.16) H 07/13/16 04:28 ICD10 Worksheet Patient Problems: Problems Problem Status Diagnosed AML (acute myelogenous leukemia) Acute ESBL (extended spectrum beta-lactamase) producing bacteria infection Acute 07/15 Flu-like symptoms Acute Neutropenic fever Acute Pancytopenia due to antineoplastic chemotherapy Acute
[2016-07-22] MEDS ORDERED: ALTEPLASE 2 MG VIAL IVP PRN (14:34)
--- NOTE | 2016-07-22 14:37 | PDIAF ---
- Diagnosis Diagnosis: e. coli (ESBL) bacteremia with perirectal abscess Code Status: Full Code - Medication Management Discharge Medications: Medications to Continue on Transfer Acetaminophen [Tylenol ES 500 mg (*)] 1,000 mg PO Q6 PRN 07/10/16 [Last Taken 21:00] Fluconazole [Diflucan (*)] 100 mg PO DAILY 07/10/16 [Last Taken 07/10/16] levOFLOXACIN [levAQUIN (*)] 500 mg PO DAILY 07/10/16 [Last Taken 07/10/16] [facility]entiary Antibiotics: zosyn 4.5 g IV q 8 hours Penitentiary Antibiotic Stop Date: 07/28/16 Discharge Medications: Refer to the Discharge Home Medication list for PRN reason. PICC Care - Routine: Yes - Orders Services needed: Registered Nurse - Labs/Radiology CBC Date: 07/25/16 CMP Date: 07/25/16 - Follow Up Care Current Providers and Referrals: Montrell Galindo MD [Primary Care Provider] - As per Instructions
--- NOTE | 2016-07-22 16:16 | PCMIDPN ---
Assessment/Plan: Assessment: Neutropenic fever initially. Perirectal abscess develops during the time of neutropenia. Pathogen is an ESBL E coli. Patient is stable on Zosyn. Plan to continue the Zosyn for total of 2 weeks from cleared blood cultures. This would make the stop date 07/28/2016. Plan: 1. Continue Zosyn. 2. Follow clinical appearance of perirectal area. 3. Exchange PICC line given his gram-negative bacteremia tomorrow prior to discharge. Subjective: Patient is resting comfortably. Still has some perirectal tenderness. Otherwise no fevers or chills. Objective: Zosyn # 9 Vital Signs Temp Pulse Resp BP Pulse Ox 36.6 C 79 16 116/63 95 07/22/16 12:14 07/22/16 12:14 07/22/16 12:14 07/22/16 12:14 07/22/16 12:14 Microbiology 07/15/16 15:04 Gram Stain - Final Other - Tissue Anaerobic Culture - Final Escherichia Coli Esbl 07/19/16 13:44 Gram Stain - Final Other - Tissue Laboratory Results 07/20/16 05:40 07/17/16 05:00 07/21/16 07/22/16 07/23/16 05:59 05:59 05:59 Intake Total 1200 660 100 Balance 1200 660 100 - Physical Exam General Appearance: WD/WN, alert, no apparent distress, non-toxic Skin: normal color, warm/dry, No rash Neuro/Psych: alert, normal mood/affect, oriented x 3 ICD10 Worksheet Patient Problems: Problems Problem Status Diagnosed AML (acute myelogenous leukemia) Acute ESBL (extended spectrum beta-lactamase) producing bacteria infection Acute 07/15 Flu-like symptoms Acute Neutropenic fever Acute Pancytopenia due to antineoplastic chemotherapy Acute
--- NOTE | 2016-07-22 17:59 | SOAPPROG ---
SOAP Progress Note Assessment/Plan: 07/21/16 13:26Assessment/Plan: Assessment: 1) AML (t9:11). Negative FLT3 / NPM1 s/p induction and 1 cycle HIDAC consolidation 2) Chemo induced anemia 3) Starla-rectal abscess s/p debridement 07/15 and 07/19, overall improving. 4) ESBL E. coli bacteremia (on Zosyn) Patient likely ready for discharge soon. Will need to see Dr. Galindo this week in the office. Will need to be clear on plan for dressing changes. This is likely going to postpone the next consolidation 07/21/16 13:28 07/22/16 17:57 Subjective: sleepy, no new complaints Objective: Vital Signs Temp Pulse Resp BP Pulse Ox 36.4 C 72 16 128/80 H 97 07/22/16 16:00 07/22/16 16:00 07/22/16 16:00 07/22/16 16:00 07/22/16 16:00 Microbiology 07/19/16 13:44 Gram Stain - Final Other - Tissue 07/15/16 15:04 Gram Stain - Final Other - Tissue Anaerobic Culture - Final Escherichia Coli Esbl Laboratory Results 07/20/16 05:40 07/17/16 05:00 07/21/16 07/22/16 07/23/16 05:59 05:59 05:59 Intake Total 1200 660 310 Balance 1200 660 310 PT 15.2 SEC (12.0-15.0) H 07/13/16 04:28 INR 1.20 (0.83-1.16) H 07/13/16 04:28 Physical Exam - Physical Exam General Appearance: alert, no apparent distress Neck: supple Respiratory: lungs clear Abdomen: non-tender, soft Rectal: other (deferred exam) Extremities: No pedal edema Neuro/Psych: alert, normal mood/affect ICD10 Worksheet Patient Problems: Problems Problem Status Diagnosed AML (acute myelogenous leukemia) Acute ESBL (extended spectrum beta-lactamase) producing bacteria infection Acute 07/15 Flu-like symptoms Acute Neutropenic fever Acute Pancytopenia due to antineoplastic chemotherapy Acute
[2016-07-23] MEDS: PIPERACILLIN/TAZO 4.5 GM/DEX 100 ML IV SCH ×3 (00:05→12:24)
[2016-07-23 06:48] LABS: ABSOLUTE NRBC COUNT 0.03 10^3/uL (0-0.01); ADD DIFF? YES; ADD MORPH? NO; ADD SCAN? NO; ATYPICAL LYMPHOCYTE FLAG 10 (0-99); FRAGMENT RBC FLAG 0 (0-99); HEMATOCRIT 29.7 % (40.0-51.0); HEMOGLOBIN 9.8 g/dL (13.7-17.5); LEFT SHIFT FLG 60 (0-99); LIPEMIA HEMOLYSIS FLAG 80 (0-99); MEAN CELL HEMOGLOBIN 31.7 pg (27.9-34.1); MEAN CELL VOLUME 96.1 fL (81.5-99.8); MEAN PLATELET VOLUME 10.6 fL (8.7-11.7); NRBC-AUTO% 0.4 % (0.0-0.2); PLATELET CLUMPS FLAG 50 (0-99); PLATELET COUNT 372 10^3/uL (150-400); RED BLOOD CELL COUNT 3.09 10^6/uL (4.40-6.38); RED CELL DISTRIBUTION WIDTH 14.5 % (11.5-15.2)
[2016-07-23 07:11] LABS: ALANINE AMINOTRANSFERASE 58 IU/L (21-72); ALBUMIN 2.6 g/dL (3.5-5.0); ANION GAP 6 mEq/L (8-16); ASPARTATE AMINOTRANSFERASE 25 IU/L (17-59); BILIRUBIN,TOTAL 0.4 mg/dL (0.1-1.4); CALCIUM 8.7 mg/dL (8.5-10.4); CARBON DIOXIDE 29 mEq/l (22-31); CHLORIDE 106 mEq/L (97-110); CREATININE 0.7 mg/dL (0.7-1.3); GLOMERULAR FILTRATION RATE > 60; GLUCOSE 92 mg/dL (70-100); POTASSIUM 4.3 mEq/L (3.5-5.2); SODIUM 141 mEq/L (134-144); TOTAL PROTEIN 5.6 g/dL (6.3-8.2)
[2016-07-23 07:30] LABS: PLATELET ESTIMATE ADEQUATE (ADEQ)
[2016-07-23 07:31] LABS: GIANT PLATELETS PRESENT; POLYCHROMASIA 1+
--- NOTE | 2016-07-23 09:37 | SOAPPROG ---
SOAP Progress Note Assessment/Plan: Assessment/Plan - 36yo M c AML s/p I&D of necrotic perirectal skin - site looks great. I dont appreciate any areas which would need addl debridement. - WBC WNL, Hb stable. Will plan to change PICC out today for home Zosyn and likely chemo in future. - Will also set up home RN for W-D dressing changes as outpatient as well. But looking for d/c later today vs tomorrow pending when we get all of the above set up 07/14/16 09:13 07/14/16 09:14 07/15/16 14:01 07/16/16 10:02 07/16/16 10:04 07/17/16 11:11 07/19/16 09:49 07/20/16 09:00 07/23/16 09:35 Subjective: Doing well, pain controlled. No fevers Objective: Vital Signs Temp Pulse Resp BP Pulse Ox 36.7 C 79 16 123/72 H 97 07/23/16 08:00 07/23/16 08:00 07/23/16 08:00 07/23/16 08:00 07/23/16 08:00 Microbiology 07/19/16 13:44 Gram Stain - Final Other - Tissue 07/15/16 15:04 Gram Stain - Final Other - Tissue Anaerobic Culture - Final Escherichia Coli Esbl Laboratory Results 07/23/16 06:22 07/23/16 06:22 07/22/16 07/23/16 07/24/16 05:59 05:59 05:59 Intake Total 660 1370 Balance 660 1370 PT 15.2 SEC (12.0-15.0) H 07/13/16 04:28 INR 1.20 (0.83-1.16) H 07/13/16 04:28 ICD10 Worksheet Patient Problems: Problems Problem Status Diagnosed AML (acute myelogenous leukemia) Acute ESBL (extended spectrum beta-lactamase) producing bacteria infection Acute 07/15 Flu-like symptoms Acute Neutropenic fever Acute Pancytopenia due to antineoplastic chemotherapy Acute
[2016-07-23] MEDS: FLUCONAZOLE 100 MG TAB PO SCH (10:30)
--- NOTE | 2016-07-23 11:56 | PDIAF ---
- Diagnosis Diagnosis: e. coli (ESBL) bacteremia with perirectal abscess Code Status: Full Code - Medication Management Discharge Medications: Medications to Continue on Transfer Acetaminophen [Tylenol ES 500 mg (*)] 1,000 mg PO Q6 PRN 07/10/16 [Last Taken 21:00] Fluconazole [Diflucan (*)] 100 mg PO DAILY 07/10/16 [Last Taken 07/10/16] levOFLOXACIN [levAQUIN (*)] 500 mg PO DAILY 07/10/16 [Last Taken 07/10/16] [employer] Antibiotics: zosyn 4.5 g IV q 8 hours Usp Antibiotic Stop Date: 07/28/16 Discharge Medications: Refer to the Discharge Home Medication list for PRN reason. PICC Care - Routine: Yes - Orders Services needed: Registered Nurse Diet Recommendation: no restrictions on diet Diet Texture: Regular Texture Diet - Labs/Radiology CBC Date: 07/25/16 CMP Date: 07/25/16 - Follow Up Care Current Providers and Referrals: Montrell Galindo MD [Primary Care Provider] - As per Instructions
--- NOTE | 2016-07-23 13:35 | PDIAF ---
- Diagnosis Diagnosis: e. coli (ESBL) bacteremia with perirectal abscess Code Status: Full Code - Medication Management Discharge Medications: Medications to Continue on Transfer Acetaminophen [Tylenol ES 500 mg (*)] 1,000 mg PO Q6 PRN 07/10/16 [Last Taken 21:00] Fluconazole [Diflucan (*)] 100 mg PO DAILY 07/10/16 [Last Taken 07/10/16] levOFLOXACIN [levAQUIN (*)] 500 mg PO DAILY 07/10/16 [Last Taken 07/10/16] [facility] Antibiotics: zosyn 13.5 g IV q24 hours by continuous infusion Top Lift N[employer]er Antibiotic Stop Date: 07/28/16 Discharge Medications: Refer to the Discharge Home Medication list for PRN reason. PICC Care - Routine: Yes - Orders Services needed: Registered Nurse Diet Recommendation: no restrictions on diet Diet Texture: Regular Texture Diet - Labs/Radiology CBC Date: 07/25/16 CMP Date: 07/25/16 - Follow Up Care Current Providers and Referrals: Bob Allen MD [Medical Doctor] - follow up in 10 days Montrell Galindo MD [Primary Care Provider] - As per Instructions
[2016-07-23 16:11] VITALS: BP 162/82; PULSE 71; TEMP 98.2; O2SAT 94
--- NOTE | 2016-07-23 18:30 | IR ---
Imaging-Guided Peripherally Inserted Central Catheter History: E. Coli bacteremia. Prophylactic Antibiotic: Cefazolin was not ordered and administered for antimicrobial prophylaxis be cause it was not medically necessary for this procedure. VTE Prophylaxis: There is not an order for VTE prophylaxis to be given within 24 hours after procedu re end time because it was not medically necessary for this procedure. Crosscutting Measure: Patient's current list of medications including all known prescriptions, over- the-counters, herbals, and vitamin/mineral/dietary supplements are reviewed. Medications' name, dosa ge, frequency, and route of administration are confirmed. Technique: Following informed consent, the left arm was prepped and draped in sterile fashion. 1% Xyl ocaine was used for local anesthetic. All elements of maximal sterile barrier technique including c ap, mask, sterile gown, sterile gloves, large sterile sheet, hand hygiene, and 2% chlorhexidine for c utaneous antisepsis, followed. Ultrasound evaluation of potential access site was performed. After successfully identifying a patent vessel, ultrasound guidance was used to puncture the vein. A permanent recording was created for the patient's record. Ultrasound transducer was placed in sterile sleeve and used for real-time imaging guidance over steri le gel to enter the brachial vein. 0.018 measuring wire was passed centrally under fluoroscopic contr ol. A skin skip with scalpel blade was followed by removing the access needle. A 5 Sinhala peel-away s lola was followed by a 5 Sinhala single-lumen central catheter, trimmed to 46 cm length.. The tip o f the catheter was positioned centrally and the guidewire removed. A single fluoroscopic spot image w as obtained in inspiration. The hub of the catheter was fixed to the skin using a sterile StatLock ad hesive device, and a sterile dressing was applied. The catheter was irrigated. Findings: The tip of the central catheter terminates at the junction of the superior vena cava and th e right atrium. Fluoroscopy: 0.1 minutes, 1 images Impression: 5 Sinhala double lumen peripherally inserted central catheter is ready to use.
[2016-07-23 20:50] LABS: ALKALINE PHOSPHATASE 70 IU/L (38-126)
--- NOTE | 2016-07-23 22:39 | GDS ---
[f rep st] DISCHARGE SUMMARY DISCHARGE DIAGNOSES: 1. Acute myeloid leukemia .. 2. Perirectal necrosis. 3. Neutropenia. 4. Thrombocytopenia. 5. Anemia. HOSPITAL COURSE: The patient was admitted from the emergency department on the evening of the . At that point in time, his white blood cell count was 0.13. His hemoglobin was also low at 7 and hi s platelets were also low with a salty of 11 he was subsequently admitted and started on broad-spectr um antibiotics. Consultation by myself was performed. He had a small area of necrosis apparent on t he perianal area that was tender, but given his underlying neutropenia he was not an adequate surgica l candidate. His white blood cell count rebounded and subsequently the necrosis appeared to have spr ead somewhat. He was subsequently taken to the operating room for the 1st time on July 16 where the skin and underlying subcutaneous tissue was debrided. He was then taken back to the general [place] floor. His pain was well controlled. His white blood cell count rebounded to a normal level. It was apparent that there was a small site which needed additional debridement. He was taken back t o the operating room on the 2nd floor where an additional portion of tissue was removed. Throughout his hospital stay, he had VTE prophylaxis, IV antibiotics throughout, cultures were taken which ended up growing out E coli ESBL from both his blood and his tissue cultures. He had consultations by yamilka sheffield, hematology/Oncology and Infectious Disease. He was monitored throughout the weekend. Examinati on of the wound on day of discharge showed that there were no new necrotic areas and that the wound b ed had an excellent granulation bed of tissue. He was subsequently discharged home with a PICC line where he will receive IV antibiotics on an outpatient basis. He will also have RN visits for wound c are. DISCHARGE MEDICATIONS: Include oxycodone IR as needed for pain control. Fluconazole 100 mg daily, L evaquin 500 mg daily, Zosyn 13.5 g IV every 24 hours per PICC line until the . DISPOSITION: He will follow up with his primary care, Dr. Galindo, later this week. He will follow up with myself in 10 days for a wound check. I will also plan to get him plugged in with the wound c are clinic. /[id number]/MODL
== END 2016-07-23 17:31 | disposition home health service (06) | DRG 557 ==
LOC: F1N 23:23
PROVIDERS: ADMIT Surgery; ATTEND Surgery
PROC: 30233R1 Transfusion of Nonautologous Platelets into Peripheral Vein, Percutaneous Approach (ICD-10-PCS; 2016-07-12)
PROC: 30233N1 Transfusion of Nonautologous Red Blood Cells into Peripheral Vein, Percutaneous Approach (ICD-10-PCS; 2016-07-15)
PROC: 0JB90ZX Excision of Buttock Subcutaneous Tissue and Fascia, Open Approach, Diagnostic (ICD-10-PCS; principal; 2016-07-15 14:37)
PROC: 0J5 Subcutaneous Tissue and Fascia, Destruction (ICD-10-PCS; 2016-07-19 16:30)
PROC: 02HV33Z Insertion of Infusion Device into Superior Vena Cava, Percutaneous Approach (ICD-10-PCS; 2016-07-23)
DX: M72.6 Necrotizing fasciitis (principal); A41.51 Sepsis due to Escherichia coli [E. coli]; R65.20 Severe sepsis without septic shock; C92.00 Acute myeloblastic leukemia, not having achieved remission; D61.810 Antineoplastic chemotherapy induced pancytopenia; D69.59 Other secondary thrombocytopenia; D63.0 Anemia in neoplastic disease; B96.29 Other Escherichia coli [E. coli] as the cause of diseases classified elsewhere; R51 Headache; Z88.1 Allergy status to other antibiotic agents; Z87.891 Personal history of nicotine dependence
CPT/HCPCS: 82947-QW; 96365; C1751; J0153; J0692; J1100; J1170; J1200; J2001; J2250; J2405; J2543; J2704; J2997; J3010; P9037; P9040; Q9967

== ENCOUNTER → 2016-08-10 | Outpatient (CLI) | payer BC ==
[~2016-08-10] MED LIST changes: -ACETAMINOPHEN 325 MG TAB ONE; -ACETAMINOPHEN 325 MG TAB PO ONE; +LIDOCAINE 1% 30 ML SDV ONE; +NA BICARBONATE 50 MEQ/50 ML VIAL ONE; -diphenhydrAMINE 25 MG CAP PO ONE
[2016-08-10 11:23] LABS: PROTEIN, CSF 36 mg/dL (12-60)
[2016-08-10 11:31] LABS: CSF COLOR COLORLESS (COLORLESS)
[2016-08-10 11:32] LABS: CSF APPEARANCE CLEAR (CLEAR); CSF SUPERNATANT COLORLESS (COLORLESS)
[2016-08-10 12:00] LABS: WBC, CSF 0 /mm3 (0-5)
[2016-08-11 15:04] LABS: FINAL DIAGNOSIS See Comments; MICROSCOPIC DESCRIPTION See Comments; SPECIAL STUDIES See Comments
== END ==
LOC: FIMAGING 08:41
PROVIDERS: ATTEND Internal Medicine Hematology & Oncology
PROC: 009U3ZX Drainage of Spinal Canal, Percutaneous Approach, Diagnostic (ICD-10-PCS; principal; 2016-08-10)
DX: C92.00 Acute myeloblastic leukemia, not having achieved remission (principal)
CPT/HCPCS: 85060-90; 88184-90; 88185-91